=== PATIENT | male | born 1975 | race Caucasian/White ===

== ENCOUNTER 2018-07-26 23:18 | Emergency (ER) | payer OTHER ==
[2018-07-27 00:41] LABS: BASO # 0.1 10^3/uL (0.0-0.2); BASO % 0.7 % (0.0-1.0); EOS # 0.2 10^3/uL (0.0-0.50); EOS % 1.7 % (0.0-3.0); HEMATOCRIT 41.9 % (42.0-52.0); HEMOGLOBIN 14.7 g/dl (13.5-17.5); IMMATURE GRANULOCYTE % 0.3 % (0-3.0); LYMPH # 2.9 10^3/uL (1.5-4.5); LYMPH % 30.5 % (24.0-44.0); MEAN CORPUSCULAR HEMOGLOBIN 31.1 pg (27.0-33.0); MEAN CORPUSCULAR HGB CONC 35.1 g/dl (32.0-36.5); MEAN CORPUSCULAR VOLUME 88.8 fl (80.0-96.0); MONO # 0.8 10^3/uL (0.0-0.8); MONO % 8.5 % (0.0-5.0); NEUTROPHILS # 5.6 10^3/uL (1.8-7.7); NEUTROPHILS % 58.3 % (36.0-66.0); PLATELET COUNT, AUTOMATED 272 10^3/uL (150-450); RED BLOOD COUNT 4.72 10^6/uL (4.30-6.10); RED CELL DISTRIBUTION WIDTH 11.8 % (11.5-14.5); WHITE BLOOD COUNT 9.6 10^3/uL (4.0-10.0)
[2018-07-27 01:04] LABS: BLOOD UREA NITROGEN 16 MG/DL (7-18); CARBON DIOXIDE LEVEL 28 MEQ/L (21-32); CHLORIDE LEVEL 105 MEQ/L (98-107); CREATININE FOR GFR 1.02 MG/DL (0.70-1.30); GLOMERULAR FILTRATION RATE > 60.0 (>60); GLUCOSE, FASTING 117 MG/DL (70-100); POTASSIUM SERUM 3.3 MEQ/L (3.5-5.1); SODIUM LEVEL 143 MEQ/L (136-145)
[2018-07-27 01:05] LABS: ANION GAP 10 MEQ/L (8-16); CALCIUM LEVEL 8.4 MG/DL (8.5-10.1); CPK CREATINE PHOSPHOKINASE 226 U/L (39-308); ETHYL ALCOHOL (ETHANOL) < 0.003 % (0.000-0.010); MB/CK RELATIVE INDEX 1.59 (< OR =4); TROPONIN I < 0.02 NG/ML (< 0.10)
[2018-07-27 02:02] LABS: LACTIC ACID SEPSIS PROTOCOL 1.3 MMOL/L (0.4-2.0)
[2018-07-27] MEDS: NS 1,000 ML IV (02:02)
[2018-07-27 02:03] LABS: KETONE, URINE AUTO RFX NEGATIVE (NEGATIVE); LEUKOCYTE ESTERASE UR AUTO RFX NEGATIVE (NEGATIVE); MUCUS, URINE RFX SMALL (NEGATIVE); NITRITE, URINE AUTO RFX NEGATIVE (NEGATIVE); RBC, URINE AUTO RFX 2 /HPF (0-3); SPECIFIC GRAVITY UR AUTO RFX 1.025 (1.002-1.035); SQUAM EPITHELIAL CELL UR AURFX 0 /HPF (0-6); WBC, URINE AUTO RFX 1 /HPF (0-3)
[2018-07-27 02:20] LABS: AMPHETAMINES LEVEL URINE NEGATIVE (NEGATIVE); BARBITURATES URINE NEGATIVE (NEGATIVE); BENZODIAZEPINES URINE NEGATIVE (NEGATIVE); CANNABINOIDS URINE POSITIVE (NEGATIVE); COCAINE METABOLITE URINE NEGATIVE (NEGATIVE); METHADONE URINE NEGATIVE (NEGATIVE); OPIATES URINE NEGATIVE (NEGATIVE); PHENCYCLIDINE URINE NEGATIVE (NEGATIVE)
== END 2018-07-27 03:47 | disposition home or self-care (01) ==
LOC: M ED 23:18
DX: R55 Syncope and collapse (principal); F43.10 Post-traumatic stress disorder, unspecified; F17.210 Nicotine dependence, cigarettes, uncomplicated
CPT/HCPCS: 71045

== ENCOUNTER → 2018-11-15 | Outpatient (CLI) | payer OTHER ==
--- NOTE | 2018-11-24 | ECWPNPC ---
PATIENT NAME: FAITH TORRES : 1975 GENDER: MALE VISIT DATE: 11/15/2018 DISCHARGE DATE: 11/15/18 1406 VISIT LOCKED DATE TIME: PHYSICIAN: JEISON WELLS MD RESOURCE: JEISON WELLS MD REASON FOR APPOINTMENT 1. CHRONIC BACK PAIN HISTORY OF PRESENT ILLNESS HISTORY OF PRESENT ILLNESS: PAIN THE PATIENT DESCRIBES THE PAIN... 42 YEAR OLD MALE PATIENT WITH A HISTORY OF CHRONIC LOW BACK PAIN. THE PATIENT DESCRIBES THE PAIN SHARP, STABBING, SORE, SHOOTING, AND CONTINUOUS WITH A PAIN SCORE OF 5-9/10 DEPENDING ON PHYSICAL ACTIVITY. THE PATIENT SAYS HIS PAIN STARTS IN HIS LOW BACK AREA AND RADIATES DOWN BOTH OF HIS LEGS. THE PATIENT SAYS HE HAS HAD THIS PAIN FOR MANY YEARS AND HE BELIEVES IT IS STARTED WHEN HE WAS WORKING A [employer]. THE PATIENT SAYS THAT HIS PAIN INCREASES WITH THE MORE PHYSICAL ACTIVITY THAT HE DOES. PATIENT DENIES UNEXPLAINABLE WEIGHT LOSS, FEVER, CHILLS, NEW CHANGES ON HIS URINARY OR BOWEL CONTROL. FALL RISK SCREENING: SCREENING :NO FALLS IN THE PAST YEAR CURRENT MEDICATIONS TAKING DULOXETINE HCL 60 MG CAPSULE DELAYED RELEASE PARTICLES 1 CAP ORALLY DAILY MEDICATION LIST REVIEWED AND RECONCILED WITH THE PATIENT PAST MEDICAL HISTORY PTSD CHRONIC BACK PAIN HX MRSA LEFT ARM PREM ALLERGIES LISINOPRIL: COUGH: SIDE EFFECTS SURGICAL HISTORY BILAT INGUINAL HERNIA REPAIR 10/2012 RIGHT ACL REPAIR 02/2016 LABRUM RIGHT SHOULDER REPAIR 06/2015 LEF ELBOW I&D FOR MRSA 2016 WISDOM TOOTH EXTRACTION A CHILD FAMILY HISTORY FATHER: 73 YRS, DIAGNOSED WITH DIABETES MOTHER: 51 YRS, DIAGNOSED WITH HYPERTENSION, STROKE 1 BROTHER(S) , 1 SISTER(S) - HEALTHY. 3 SON(S) , 3 DAUGHTER(S) - HEALTHY. [facility] . SOCIAL HISTORY GENERAL: TOBACCO USE ARE YOU A:NONSMOKER ADVENTIST [id number] JUDAISM LANGUAGE LANGUAGES SPOKEN:ARMENIAN EDUCATION LEVEL OF EDUCATION:NOT FINISHED COLLEGE LEARNING BARRIERS / SPECIAL NEEDS BARRIERS TO LEARNING?NO HEARING IMPAIRED?NO VISION IMPAIRED?YES :CORRECTIVE LENSES COGNITIVELY IMPAIRED?NO READINESS TO LEARN?YES LEARNING PREFERENCES?NO LEARNING CAPABILITIES PRESENT?YES EMOTIONAL BARRIERS?NO SPECIAL DEVICES?NO FAMILY DENTIST NEEDED?NO PAIN CLINIC PFS, CLERGY, PUBLIC HEALTH REFERRALS HAS THE PATIENT BEEN EDUCATED REGARDING HIS/HER PLAN OF CARE?YES HAS THE PATIENT BEEN EDUCATED REGARDING PAIN, THE RISK FOR PAIN, THE IMPORTANCE OF EFFECTIVE PAIN MANAGEMENT, AND THE PAIN ASSESSMENT PROCESS?YES ADVANCE DIRECTIVE ADVANCE DIRECTIVE DISCUSSED WITH PATIENT:YES DECLINED HOSPITALIZATION/MAJOR DIAGNOSTIC PROCEDURE SURGERIES REVIEW OF SYSTEMS REVIEWED BY: PROVIDER: JEISON WELLS MD . CONSTITUTIONAL: ANY CHANGE IN YOUR MEDICAL CONDITION? NO . CHILLS NO . FEVER NO . INFECTION: DO YOU HAVE NEW INFECTIONS? NO . DO YOU HAVE HISTORY OF MRSA? NO . MUSCULOSKELETAL: ANY NEW PATTERNS OF PAIN OR NUMBNESS? NO . GASTROENTEROLOGY: ANY NEW CHANGE IN BOWEL CONTROL? NO . GENITOURINARY: ANY NEW CHANGE IN BLADDER CONTROL? NO . IS THERE A CHANCE YOU COULD BE ? NO . HEMATOLOGY/LYMPH: DO YOU TAKE ANY BLOOD THINNERS? (FOR EXAMPLE- COUMADIN, PLAVIX, AGGRENOX, PLATEL, PRADAXA, OR XARELTO) NO . WHEN WAS YOUR LAST DOSE? DATE: TIME: . NEUROLOGY: HAVE YOU FALLEN IN THE PAST 12 MONTHS? NO . ANY NEW EXTREMITY NUMBNESS OR WEAKNESS? NO . CARDIOLOGY: DO YOU HAVE A PACEMAKER OR DEFIBRILLATOR? NO . RESPIRATORY: HAVE YOU BEEN SICK IN THE PAST WEEK? NO . FEVER NO . FLU LIKE SYMPTOMS? NO . COUGH NO . INTEGUMENTARY: DO YOU HAVE ANY RASHES OR OPEN SORES? NO . ALLERGIC/IMMUNO: ARE YOU ALLERGIC TO IV DYE? NO . ANY NEW ALLERGIES? NO . PSYCHIATRIC: DO YOU HAVE THOUGHTS OF HURTING YOURSELF OR SOMEONE ELSE? NO . ARE YOU ABUSED, NEGLECTED, OR IN AN UNSAFE ENVIRONMENT? NO . ENDOCRINOLOGY: ARE YOU DIABETIC? NO . OTHER: DO YOU NEED ANY PRESCRIPTIONS? NO . IF YES, PLEASE LIST: ____ . ANY NEW PROBLEMS WITH YOUR MEDICATIONS? NO . WHEN DID YOU LAST EAT? ____ . WHEN DID YOU LAST DRINK? ____ . WHAT DID YOU LAST DRINK? ____ . NAME OF PERSON DRIVING YOU HOME? ____ . DO YOU HAVE ANY OTHER QUESTIONS OR CONCERNS NO . VITAL SIGNS WT 258 LBS, HT 77 IN, BMI 30.59 INDEX, BP 146/95 MM HG, HR 73 /MIN, RR 18 /MIN, TEMP 96.9 F, OXYGEN SAT % 96%, NA INITIALS SC 12:01, REVIEWED BY: EM. EXAMINATION GENERAL EXAMINATION: PATIENT IS ALERT O X 3 AND COOPERATIVE. LUNGS CLEAR, TO AUSCULTATION. HEART: NO MURMURS OR GALLOPS; FACIAL CRANIAL NERVES ARE GROSSLY NORMAL. GOOD SYMMETRY OF FACIAL MUSCLE MOVEMENT. NORMAL VISUAL RICHEY. SEVERE TENDERNESS IN THE LOW BACK AREA. PATIENT CAN FLEX HIS BACK TO 50 DEGREES AND CAN EXTEND HIS BACK TO 10 DEGREES. PRESENCE OF TRIGGER POINTS AND BANDS OF TISSUE WITH RESTRICTION OF MOVEMENT OF THE LOW BACK. PAIN INCREASES OVER THE LUMBAR FACET JOINTS WITH EXTENSION AND LATERAL ROTATION OF THE BACK. ASSESSMENTS MYALGIA, OTHER SITE - M79.18 (PRIMARY) TREATMENT MYALGIA, OTHER SITE CLINICAL NOTES: WE DISCUSSED SEVERAL ISSUES WITH MR. TORRES'S PAIN MANAGEMENT CASE. DUE TO THE TRIGGER POINTS, BANDS OF TISSUE, AND RESTRICTION OF MOVEMENT, I WOULD LIKE TO MOVE FORWARD WITH A TRIGGER POINT INJECTION AT THIS TIME. WE DISCUSSED THE BENEFITS, RISKS, AND ALTERNATIVES OF THE INJECTION AND THE PATIENT WOULD LIKE TO PROCEED. I WOULD ALSO LIKE TO GET COPIES OF THE PATIENT'S MOST RECENT LUMBAR MRI FROM [facility]. THE PATIENT WILL FOLLOW UP 3 WEEKS AFTER THE INJECTION. INSTRUCTIONS WERE GIVEN, QUESTIONS WERE ANSWERED, PATIENT REPORTS UNDERSTANDING AND AGREES WITH THE PLAN. I, HEBER YO, DOCUMENTED THE ABOVE INFORMATION ACTING A SCRIBE FOR DR. WELLS. I HAVE REVIEWED THE ABOVE DOCUMENT, WRITTEN BY HEBER YO SCRIBE AND I VERIFY THAT IT IS ACCURATE. DEAR DR. MATA:THANK YOU FOR YOUR KIND REFERRAL OF MR. TORRES. IF YOU WANT TO DISCUSS HIS CASE WITH ME PLEASE CALL ME AT THE PAIN CENTER AT [phone]. SINCERELY,JEISON WELLS, [facility]. OTHERS NOTES: TRIGGER POINT INJECTION: YOUR EXPERIENCE MATERIAL WAS PRINTED,TRIGGER POINT INJECTION MATERIAL WAS PRINTED. PREVENTIVE MEDICINE PAIN CLINIC TEACHING: PROCEDURE TEACHING PT GIVEN WRITTEN AND VERBAL EDUCATION ON TRIGGER POINT INJECTIONS. PT ALSO GIVEN WRITTEN AND VERBAL PRE-PROCEDURE INSTRUCTIONS. PT VERBALIZES UNDERSTANDING OF ALL EDUCATION AND INSTRUCTIONS. NISHA VELASQUEZ 11/15/2018 2:08:13 PM > . PROCEDURE CODES FA211 ESTABILISHED PATIENT [facility] FACILITY CHARGE G8427 CURRENT MEDS W/DOSAGES DOCUMENTED G8730 PAIN ASSESS POS TOOL F/U PLAN DOC DISPOSITION & COMMUNICATION FOLLOW UP TPI & F/U 1 MONTH AFTER ELECTRONICALLY SIGNED BY JEISON WELLS MD, MD ON 11/23/2018 AT 08:45 PM EST DISCLAIMER : THIS IS A VISIT SUMMARY EXTRACTED FROM THE [employer] CHART. IT IS NOT A COPY OF THE [employer] PROGRESS NOTE. PJ
== END ==
LOC: M PAIN 11:30
PROVIDERS: ATTEND Anesthesiology
DX: M79.18 Myalgia, other site (principal); G47.33 Obstructive sleep apnea (adult) (pediatric); F43.10 Post-traumatic stress disorder, unspecified; Z88.8 Allergy status to other drugs, medicaments and biological substances; Z79.899 Other long term (current) drug therapy

== ENCOUNTER → 2018-12-05 | Outpatient (CLI) | payer OTHER ==
[~2018-12-05] MED LIST: BUPIVACAINE HCL 0.25% 10 ML VIAL As Ordered ONE; BUPIVACAINE HCL 0.25% 30 ML VIAL As Ordered ONE; TRIAMCINOLONE ACETONIDE SUSP 40 MG/ML VIAL (J3301) As Ordered ONE; diazePAM 5 MG TAB As Ordered ONE; oxyCODONE 5MG TAB As Ordered ONE
--- NOTE | 2018-12-14 23:21 | ECWPNPC ---
PATIENT NAME: FAITH TORRES : 1975 GENDER: MALE VISIT DATE: 12/05/2018 DISCHARGE DATE: 12/05/18 1605 VISIT LOCKED DATE TIME: PHYSICIAN: JEISON WELLS MD RESOURCE: JEISON WELLS MD HISTORY OF PRESENT ILLNESS HISTORY OF PRESENT ILLNESS: PAIN THE PATIENT DESCRIBES THE PAIN... FALL RISK SCREENING: SCREENING : NO FALLS IN THE PAST YEAR. CURRENT MEDICATIONS TAKING DULOXETINE HCL 60 MG CAPSULE DELAYED RELEASE PARTICLES 1 CAP ORALLY DAILY, NOTES: 12/05/18 MEDICATION LIST REVIEWED AND RECONCILED WITH THE PATIENT PAST MEDICAL HISTORY PTSD CHRONIC BACK PAIN HX MRSA LEFT ARM PREM ALLERGIES LISINOPRIL: COUGH: SIDE EFFECTS SURGICAL HISTORY BILAT INGUINAL HERNIA REPAIR 10/2012 RIGHT ACL REPAIR 02/2016 LABRUM RIGHT SHOULDER REPAIR 06/2015 LEF ELBOW I&D FOR MRSA 2015 WISDOM TOOTH EXTRACTION A CHILD FAMILY HISTORY FATHER: 73 YRS, DIAGNOSED WITH DIABETES MOTHER: 51 YRS, DIAGNOSED WITH HYPERTENSION, STROKE 1 BROTHER(S) , 1 SISTER(S) - HEALTHY. 3 SON(S) , 3 DAUGHTER(S) - HEALTHY. FATHER OF SEPSIS IN [facility]. SOCIAL HISTORY GENERAL: TOBACCO USE ARE YOU A:NONSMOKER PRESYBETERIAN [id number] QUAKER LANGUAGE LANGUAGES SPOKEN:SERBIAN EDUCATION LEVEL OF EDUCATION:NOT FINISHED COLLEGE LEARNING BARRIERS / SPECIAL NEEDS BARRIERS TO LEARNING?NO HEARING IMPAIRED?NO VISION IMPAIRED?YES :CORRECTIVE LENSES COGNITIVELY IMPAIRED?NO READINESS TO LEARN?YES LEARNING PREFERENCES?NO LEARNING CAPABILITIES PRESENT?YES EMOTIONAL BARRIERS?NO SPECIAL DEVICES?NO ENGRAVER MACHINE NEEDED?NO PAIN CLINIC PFS, CLERGY, PUBLIC HEALTH REFERRALS HAS THE PATIENT BEEN EDUCATED REGARDING HIS/HER PLAN OF CARE?YES HAS THE PATIENT BEEN EDUCATED REGARDING PAIN, THE RISK FOR PAIN, THE IMPORTANCE OF EFFECTIVE PAIN MANAGEMENT, AND THE PAIN ASSESSMENT PROCESS?YES ADVANCE DIRECTIVE ADVANCE DIRECTIVE DISCUSSED WITH PATIENT:YES DECLINED HOSPITALIZATION/MAJOR DIAGNOSTIC PROCEDURE SURGERIES REVIEW OF SYSTEMS REVIEWED BY: PROVIDER: . CONSTITUTIONAL: ANY CHANGE IN YOUR MEDICAL CONDITION? NO . CHILLS NO . FEVER NO . INFECTION: DO YOU HAVE NEW INFECTIONS? NO . DO YOU HAVE HISTORY OF MRSA? YES, LEFT ARM . MUSCULOSKELETAL: ANY NEW PATTERNS OF PAIN OR NUMBNESS? YES, S/P FALL, INCREASED PAIN . GASTROENTEROLOGY: ANY NEW CHANGE IN BOWEL CONTROL? NO . GENITOURINARY: ANY NEW CHANGE IN BLADDER CONTROL? NO . IS THERE A CHANCE YOU COULD BE ? NO . HEMATOLOGY/LYMPH: DO YOU TAKE ANY BLOOD THINNERS? (FOR EXAMPLE- COUMADIN, PLAVIX, AGGRENOX, PLATEL, PRADAXA, OR XARELTO) NO . WHEN WAS YOUR LAST DOSE? DATE: TIME: . NEUROLOGY: HAVE YOU FALLEN IN THE PAST 12 MONTHS? YES, FELL LAST WEEK FROM LOSS OF BALANCE ON THE ICE, INJURED LEFT HIP, PT DENIES SEEKING TX . ANY NEW EXTREMITY NUMBNESS OR WEAKNESS? YES, RIGHT ARM AND BILAT LEG NUMBNESS . CARDIOLOGY: DO YOU HAVE A PACEMAKER OR DEFIBRILLATOR? NO . RESPIRATORY: HAVE YOU BEEN SICK IN THE PAST WEEK? NO . FEVER NO . FLU LIKE SYMPTOMS? NO . COUGH NO . INTEGUMENTARY: DO YOU HAVE ANY RASHES OR OPEN SORES? NO . ALLERGIC/IMMUNO: ARE YOU ALLERGIC TO IV DYE? NO . ANY NEW ALLERGIES? NO . PSYCHIATRIC: DO YOU HAVE THOUGHTS OF HURTING YOURSELF OR SOMEONE ELSE? NO . ARE YOU ABUSED, NEGLECTED, OR IN AN UNSAFE ENVIRONMENT? NO . ENDOCRINOLOGY: ARE YOU DIABETIC? NO . OTHER: DO YOU NEED ANY PRESCRIPTIONS? NO . IF YES, PLEASE LIST: ____ . ANY NEW PROBLEMS WITH YOUR MEDICATIONS? NO . WHEN DID YOU LAST EAT? 12/04/18 2030 . WHEN DID YOU LAST DRINK? 12/05/18 0830 . WHAT DID YOU LAST DRINK? WATER . NAME OF PERSON DRIVING YOU HOME? . DO YOU HAVE ANY OTHER QUESTIONS OR CONCERNS NO . VITAL SIGNS WT 247.4 LBS, HT 77 IN, BMI 29.33 INDEX, BP 138/70 MM HG, HR 84 /MIN, RR 18 /MIN, TEMP 96.9 F, OXYGEN SAT % 94%, NA INITIALS SC 13:53, REVIEWED BY: EM. ASSESSMENTS MYALGIA, OTHER SITE - M79.18 (PRIMARY) PROCEDURES PN TRIGGER POINT INJECTION WITH STEROIDS PRE PROCEDURE DIAGNOSIS 1. MYALGIA 2. PAIN AT BILATERAL THORACIC AREA AND BILATERAL LOW BACK AREA POST PROCEDURE DIAGNOSIS 1. MYALGIA 2. PAIN AT BILATERAL THORACIC AREA AND BILATERAL LOW BACK AREA PROCEDURE TRIGGER POINT INJECTION AT BILATERAL THORACIC AREA AND BILATERAL LOW BACK AREA SURGEON DR. JEISON WELLS LEAD SUPPLY WORKER NONE ANESTHESIA LOCAL PRE PROCEDURE NOTE THE PATIENT HAS A HISTORY OF CHRONIC PAIN AT THE RIGHT AND LEFT THORACIC AREA AND RIGHT AND LEFT LOW BACK AREA. I EVALUATE THE PATIENT AND REVIEWED THE CHART. THERE IS EVIDENCE OF BANDS OF TISSUE WITH RESTRICTION OF MOVEMENT AND PRESENCE OF TRIGGER POINT AT THE AFFECTED AREA. I WENT OVER THE RISKS, ALTERNATIVES, AND BENEFITS ASSOCIATED WITH THIS PROCEDURE. THE PATIENT WOULD LIKE TO PROCEED AND GIVE CONSENT TO PERFORMED THE PROCEDURE. THE PATIENT DENIES UNEXPLAINABLE WEIGHT LOSS, FEVER, CHILLS, OR NEW CHANGES IN URINARY OR BOWEL CONTROL DESCRIPTION OF PROCEDURE THE PATIENT WAS BROUGHT TO THE PROCEDURE ROOM AND PLACED IN THE SITTING POSITION. THE AREA WAS CLEANED WITH ALCOHOL. THE PROCEDURE WAS DONE USING ASEPTIC STERILE TECHNIQUE. I CHECKED LATERALITY AND THE LEVEL WHERE THE PROCEDURE WAS GOING TO BE PERFORMED WITH THE PATIENT AND THE SUPPORTING STAFF AT THE MOMENT OF THE TIME OUT IN THE PROCEDURE ROOM. USING A 25-GAUGE NEEDLE, TRIGGER POINTS WERE INJECTED AT THE RIGHT AND LEFT THORACIC AREA AND RIGHT AND LEFT LOW BACK AREA WITH A TOTAL OF 40 ML OF BUPIVACAINE 0.25% AND KENALOG 40 MG. THERE WAS NO EVIDENCE OF BLOOD, PARESTHESIA OR CEREBROSPINAL FLUID DURING THE PROCEDURE. THE PATIENT WAS SENT TO THE RECOVERY ROOM. THE PATIENT WAS MOVING THE EXTREMITIES AND DOING WELL. THERE WAS NO COMPLICATION DURING THE PROCEDURE POST PROCEDURE NOTE THE PATIENT WILL BE SEEN IN A FOLLOW UP IN THE NEXT FEW WEEKS. INSTRUCTIONS WERE GIVEN, QUESTIONS WERE ANSWERED, AND THE PATIENT EXPRESSED UNDERSTANDING AND AGREES WITH THE PLAN. I, HEBER YO, DOCUMENTED THE ABOVE INFORMATION ACTING A SCRIBE FOR DR. WELLS. I HAVE REVIEWED THE ABOVE DOCUMENT, WRITTEN BY HEBER ANTUNEZ AND I VERIFY THAT IT IS ACCURATE. PROCEDURE CODES 52910 INJECT TRIGGER POINTS 3/> DISPOSITION & COMMUNICATION FOLLOW UP 3 WEEKS ELECTRONICALLY SIGNED BY JEISON WELLS MD, MD ON 12/14/2018 AT 07:02 PM EST DISCLAIMER : THIS IS A VISIT SUMMARY EXTRACTED FROM THE [employer] CHART. IT IS NOT A COPY OF THE [employer] PROGRESS NOTE. MTDD
== END ==
LOC: M PAIN 13:45
PROVIDERS: ATTEND Anesthesiology
DX: M79.18 Myalgia, other site (principal); M54.6 Pain in thoracic spine; M54.5 Low back pain; F43.10 Post-traumatic stress disorder, unspecified; G47.33 Obstructive sleep apnea (adult) (pediatric); Z79.899 Other long term (current) drug therapy; Z88.8 Allergy status to other drugs, medicaments and biological substances; Z86.14 Personal history of Methicillin resistant Staphylococcus aureus infection
CPT/HCPCS: 20553; J3301

== ENCOUNTER → 2018-12-09 | Outpatient (CLI) | payer OTHER ==
--- NOTE | 2018-12-09 22:12 | REP ---
Clinical: Pain with hyperextension injury. Technique: AP, lateral, bilateral oblique views left wrist . Findings: The carpal bones, surrounding osseous structures, soft tissues, and joint spaces are normal. There is no evidence for acute fracture or dislocation. No subcutaneous emphysema or radiodense foreign body. Impression: No acute fracture or dislocation. If the patient remains symptomatic consider reevaluation in 3-5 days including scaphoid views if necessary. Electronically Signed by Archie Cat MD 12/09/2018 10:04 P
== END ==
LOC: M WUC 18:56
PROVIDERS: ATTEND Physician Assistant
DX: M25.532 Pain in left wrist (principal)

== ENCOUNTER → 2019-01-16 | Outpatient (CLI) | payer OTHER ==
--- NOTE | 2019-02-03 00:37 | ECWPNPC ---
PATIENT NAME: FAITH TORRES : 1975 GENDER: MALE VISIT DATE: 01/16/2019 DISCHARGE DATE: 01/16/19 174 VISIT LOCKED DATE TIME: PHYSICIAN: JEISON WELLS MD RESOURCE: JEISON WELLS MD REASON FOR APPOINTMENT 1. POST PROC HISTORY OF PRESENT ILLNESS HISTORY OF PRESENT ILLNESS: PAIN THE PATIENT DESCRIBES THE PAIN... 43 YEAR OLD MALE PATIENT WITH A HISTORY OF CHRONIC LOW BACK AND THORACIC PAIN. THE PATIENT DESCRIBES THE PAIN ACHING, SHARP, STABBING, SHOOTING, AND CONTINUOUS WITH A PAIN SCORE OF 4-10/10 DEPENDING ON PHYSICAL ACTIVITY. THE PATIENT SAYS HIS PAIN STARTS IN HIS LOW BACK AND RADIATES DOWN INTO HIS LEFT LEG. THE PATIENT RECEIVED A TRIGGER POINT INJECTION ON 12/05/2018 AND REPORTS THAT IT HELPED HIM FOR ABOUT 2 WEEKS AND THEN HIS PAIN RETURNED. PATIENT DENIES UNEXPLAINABLE WEIGHT LOSS, FEVER, CHILLS, NEW CHANGES ON HIS URINARY OR BOWEL CONTROL. FALL RISK SCREENING: SCREENING :NO FALLS REPORTED IN THE LAST YEAR CURRENT MEDICATIONS TAKING DULOXETINE HCL 60 MG CAPSULE DELAYED RELEASE PARTICLES 1 CAP ORALLY DAILY TAKING VITAMIN D-400 _ TABLET 600 UNITS 2 TABLETS ORALLY ONCE A DAY MEDICATION LIST REVIEWED AND RECONCILED WITH THE PATIENT PAST MEDICAL HISTORY PTSD CHRONIC BACK PAIN HX MRSA LEFT ARM PREM ALLERGIES LISINOPRIL: COUGH - SIDE EFFECTS SURGICAL HISTORY BILAT INGUINAL HERNIA REPAIR 10/2012 RIGHT ACL REPAIR 02/2016 LABRUM RIGHT SHOULDER REPAIR 06/2015 LEFT ELBOW I&D FOR MRSA 2015 WISDOM TOOTH EXTRACTION A CHILD FAMILY HISTORY FATHER: 73 YRS, DIAGNOSED WITH DIABETES MOTHER: 51 YRS, HYPERTENSION, STROKE 1 BROTHER(S) , 1 SISTER(S) - HEALTHY. 3 SON(S) , 3 DAUGHTER(S) - HEALTHY. FATHER OF SEPSIS IN [place]\NS[place]. SOCIAL HISTORY GENERAL: TOBACCO USE ARE YOU A:NONSMOKER LATEX QUESTIONNAIRE LATEX ALLERGY : HAVE YOU EVER DEVELOPED ANY TYPE OF REACTION AFTER HANDLING LATEX PRODUCTS SUCH RUBBER GLOVES, CONDOMS, DIAPHRAGMS, BALLOONS, SOCKS, OR UNDERWEAR?NO LATEX ALLERGY : HAVE YOU EVER DEVELOPED ANY TYPE OF REACTION DURING OR AFTER DENTAL APPOINTMENT, VAGINAL/RECTAL EXAMINATION, SURGICAL PROCEDURE, OR ANY OTHER EXPOSURE?NO LATEX RISK : HAVE YOU EVER HAD ANY DIFFICULTY BREATHING OR HIVES AFTER EATING OR HANDLING ANY FRUITS, OR VEGETABLES; SUCH KIWI, BANANAS, STONE FRUITS, OR CHESTNUTSNO LATEX RISK : DO YOU HAVE A PREVIOUS PERSONAL HISTORY OF MORE THAN NINE SURGERIES, SPINA BIFIDA, OR REPEATED CATHERTIZATIONS? NO LATEX RISK : ARE YOU FREQUENTLY EXPOSED TO LATEX PRODUCTS IN YOUR OCCUPATION?NO DATE ASKED : 01/16/2019 ALCOHOL SCREENING DID YOU HAVE A DRINK CONTAINING ALCOHOL IN THE PAST YEAR?YES HOW OFTEN DID YOU HAVE A DRINK CONTAINING ALCOHOL IN THE PAST YEAR?MONTHLY OR LESS (1 POINT) HOW MANY DRINKS DID YOU HAVE ON A TYPICAL DAY WHEN YOU WERE DRINKING IN THE PAST YEAR?3 OR 4 (1 POINT) HOW OFTEN DID YOU HAVE SIX OR MORE DRINKS ON ONE OCCASION IN THE PAST YEAR?NEVER (0 POINTS) POINTS2 INTERPRETATIONNEGATIVE RECREATIONAL DRUG USE DRUG USE?YES HOW OFTEN AND HOW MUCH? [id number] TIMES/DAY CAFFEINE CAFFEINE USE?NO HOLINESS [id number] ADVENTIST LANGUAGE LANGUAGES SPOKEN:TAJIK EDUCATION LEVEL OF EDUCATION:NOT FINISHED COLLEGE LEARNING BARRIERS / SPECIAL NEEDS BARRIERS TO LEARNING?NO HEARING IMPAIRED?NO VISION IMPAIRED?YES :CORRECTIVE LENSES COGNITIVELY IMPAIRED?NO READINESS TO LEARN?YES LEARNING PREFERENCES?NO LEARNING CAPABILITIES PRESENT?YES EMOTIONAL BARRIERS?NO SPECIAL DEVICES?NO JEWELRY SALES NEEDED?NO DOMESTIC VIOLENCE DO YOU FEEL SAFE IN YOUR ENVIRONMENT?YES PAIN CLINIC PFS, CLERGY, PUBLIC HEALTH REFERRALS HAS THE PATIENT BEEN EDUCATED REGARDING HIS/HER PLAN OF CARE?YES HAS THE PATIENT BEEN EDUCATED REGARDING PAIN, THE RISK FOR PAIN, THE IMPORTANCE OF EFFECTIVE PAIN MANAGEMENT, AND THE PAIN ASSESSMENT PROCESS?YES ADVANCE DIRECTIVE ADVANCE DIRECTIVE DISCUSSED WITH PATIENT:YES 01/16/19 PT DOES NOT HAVE ANY ADVANCED DIRECTIVES AND HE DECLINES INFORMATION ON HCP AT THIS TIME. AD HOSPITALIZATION/MAJOR DIAGNOSTIC PROCEDURE SURGERIES REVIEW OF SYSTEMS REVIEWED BY: PROVIDER: JEISON WELLS MD . CONSTITUTIONAL: ANY CHANGE IN YOUR MEDICAL CONDITION? NO . CHILLS NO . FEVER NO . INFECTION: DO YOU HAVE NEW INFECTIONS? NO . DO YOU HAVE HISTORY OF MRSA? YES 2016 LEFT ELBOW . MUSCULOSKELETAL: ANY NEW PATTERNS OF PAIN OR NUMBNESS? NO . GASTROENTEROLOGY: ANY NEW CHANGE IN BOWEL CONTROL? NO . GENITOURINARY: ANY NEW CHANGE IN BLADDER CONTROL? NO . IS THERE A CHANCE YOU COULD BE ? NO . HEMATOLOGY/LYMPH: DO YOU TAKE ANY BLOOD THINNERS? (FOR EXAMPLE- COUMADIN, PLAVIX, AGGRENOX, PLATEL, PRADAXA, OR XARELTO) NO . WHEN WAS YOUR LAST DOSE? DATE: TIME: . NEUROLOGY: HAVE YOU FALLEN IN THE PAST 12 MONTHS? YES, IN OCT. SLIPPED ON ICE. BACK PAIN WAS AGGREVATED AFTER . ANY NEW EXTREMITY NUMBNESS OR WEAKNESS? BOTH LEGS CONTINUE TO BE WEAK AND NUMB, ON OCCASSIONS THIS IS SEVERE AND HE CAN HARDLY STAND UP . CARDIOLOGY: DO YOU HAVE A PACEMAKER OR DEFIBRILLATOR? NO . RESPIRATORY: HAVE YOU BEEN SICK IN THE PAST WEEK? NO . FEVER NO . FLU LIKE SYMPTOMS? NO . COUGH NO . INTEGUMENTARY: DO YOU HAVE ANY RASHES OR OPEN SORES? NO . ALLERGIC/IMMUNO: ARE YOU ALLERGIC TO IV DYE? NO . ANY NEW ALLERGIES? NO . PSYCHIATRIC: DO YOU HAVE THOUGHTS OF HURTING YOURSELF OR SOMEONE ELSE? NO . ARE YOU ABUSED, NEGLECTED, OR IN AN UNSAFE ENVIRONMENT? NO . ENDOCRINOLOGY: ARE YOU DIABETIC? NO . OTHER: DO YOU NEED ANY PRESCRIPTIONS? NO . IF YES, PLEASE LIST: ____ . ANY NEW PROBLEMS WITH YOUR MEDICATIONS? NO . WHEN DID YOU LAST EAT? ____ . WHEN DID YOU LAST DRINK? ____ . WHAT DID YOU LAST DRINK? ____ . NAME OF PERSON DRIVING YOU HOME? ____ . DO YOU HAVE ANY OTHER QUESTIONS OR CONCERNS NO . VITAL SIGNS WT 244.2 LBS, HT 77 IN, BMI 28.95 INDEX, BP 155/93 MM HG, HR 98 /MIN, RR 18 /MIN, TEMP 97.8 F, OXYGEN SAT % 97%, SAFE IN ENV? (Y/N) Y, NA INITIALS SC 15:41, REVIEWED BY: JOSÉ MIGUEL. EXAMINATION GENERAL EXAMINATION: PATIENT IS ALERT O X 3 AND COOPERATIVE. ANTALGIC GAIT. LEFT LEG IS WEAKER AT EXTENSION AND FLEXION. STRAIGHT LEG RAISE OF THE LEFT LEG IS POSITIVE AT 30 DEGREES FOR RADICULOPATHY. MRI OF THE LUMBAR SPINE DONE ON 06/21/2015 SHOWS BULGING DISCS AT MULTIPLE LEVELS. ASSESSMENTS INTERVERTEBRAL DISC DISORDER WITH RADICULOPATHY OF LUMBAR REGION - M51.16 (PRIMARY) TREATMENT INTERVERTEBRAL DISC DISORDER WITH RADICULOPATHY OF LUMBAR REGION CLINICAL NOTES: WE DISCUSSED SEVERAL ISSUES WITH MR. TORRES'S PAIN MANAGEMENT CASE. DUE TO THE LUMBAR RADICULOPATHY, I WOULD LIKE TO MOVE FORWARD WITH A LUMBAR EPIDURAL STEROID INJECTION AT THIS TIME. WE DISCUSSED THE BENEFITS, RISKS, AND ALTERNATIVES OF THE INJECTION AND THE PATIENT WOULD LIKE TO PROCEED. THE PATIENT WILL FOLLOW UP 3 WEEKS AFTER THE INJECTION. INSTRUCTIONS WERE GIVEN, QUESTIONS WERE ANSWERED, PATIENT REPORTS UNDERSTANDING AND AGREES WITH THE PLAN. I, HEBER YO, DOCUMENTED THE ABOVE INFORMATION ACTING A SCRIBE FOR DR. WELLS. I HAVE REVIEWED THE ABOVE DOCUMENT, WRITTEN BY HEBER TAVAREZIBDonna AND I VERIFY THAT IT IS ACCURATE. . OTHERS NOTES: WHAT IS LUMBAR EPIDURAL INJECTION? MATERIAL WAS PRINTED,LUMBAR EPIDURAL INJECTION: YOUR PROCEDURE MATERIAL WAS PRINTED. PROCEDURE CODES FA211 ESTABILISHED PATIENT [facility] FACILITY CHARGE G8427 CURRENT MEDS W/DOSAGES DOCUMENTED G8730 PAIN ASSESS POS TOOL F/U PLAN DOC DISPOSITION & COMMUNICATION FOLLOW UP 3 WEEKS ELECTRONICALLY SIGNED BY JEISON WELLS MD, MD ON 02/02/2019 AT 07:48 PM EDT DISCLAIMER : THIS IS A VISIT SUMMARY EXTRACTED FROM THE [employer] CHART. IT IS NOT A COPY OF THE [employer] PROGRESS NOTE. PJ
== END ==
LOC: M PAIN 14:45
PROVIDERS: ATTEND Anesthesiology
DX: M51.16 Intervertebral disc disorders with radiculopathy, lumbar region (principal); G89.29 Other chronic pain; F43.10 Post-traumatic stress disorder, unspecified; G47.33 Obstructive sleep apnea (adult) (pediatric); Z79.899 Other long term (current) drug therapy; Z88.8 Allergy status to other drugs, medicaments and biological substances; Z86.14 Personal history of Methicillin resistant Staphylococcus aureus infection

== ENCOUNTER → 2019-01-29 | Outpatient (CLI) | payer OTHER ==
[~2019-01-29] MED LIST changes: -BUPIVACAINE HCL 0.25% 10 ML VIAL As Ordered ONE; -BUPIVACAINE HCL 0.25% 30 ML VIAL As Ordered ONE; +ISOVUE-M 300 61% 15ML VIAL (Q9967) As Ordered ONE; +LIDOCAINE 1% SDV INJ 30 ML VIAL As Ordered ONE; -TRIAMCINOLONE ACETONIDE SUSP 40 MG/ML VIAL (J3301) As Ordered ONE; +methylPREDNISolone SUSP 40 MG/ML (DEPO-medrol) VIAL (J1030) As Ordered ONE
--- NOTE | 2019-01-29 11:42 | REP ---
Partial lumbar spine series: Two views . History: Injection procedure for pain. 11 seconds of fluoroscopy time is reported. Findings: A sequence of two fluoroscopically obtained last image hold procedural spot radiographs of the lumbar spine document needle position and contrast injection associated with injection procedure. Electronically Signed by Jeremy Almaraz MD 01/29/2019 11:34 A
--- NOTE | 2019-02-17 00:19 | ECWPNPC ---
PATIENT NAME: FAITH TORRES : 1975 GENDER: MALE VISIT DATE: 01/29/2019 DISCHARGE DATE: 01/29/19 1146 VISIT LOCKED DATE TIME: PHYSICIAN: JEISON WELLS MD RESOURCE: JEISON WELLS MD REASON FOR APPOINTMENT 1. LESI HISTORY OF PRESENT ILLNESS HISTORY OF PRESENT ILLNESS: PAIN THE PATIENT DESCRIBES THE PAIN... FALL RISK SCREENING: SCREENING :NO FALLS REPORTED IN THE LAST YEAR CURRENT MEDICATIONS TAKING DULOXETINE HCL 60 MG CAPSULE DELAYED RELEASE PARTICLES 1 CAP ORALLY DAILY, NOTES: 01/29/19599 TAKING VITAMIN D-400 _ TABLET 1000 UNITS 2 TABLETS ORALLY ONCE A DAY, NOTES: 01/29/19599 MEDICATION LIST REVIEWED AND RECONCILED WITH THE PATIENT PAST MEDICAL HISTORY PTSD CHRONIC BACK PAIN HX MRSA LEFT ARM PREM ALLERGIES LISINOPRIL: COUGH - SIDE EFFECTS SURGICAL HISTORY BILAT INGUINAL HERNIA REPAIR 10/2012 RIGHT ACL REPAIR 02/2016 LABRUM RIGHT SHOULDER REPAIR 06/2015 LEFT ELBOW I&D FOR MRSA 2015 WISDOM TOOTH EXTRACTION A CHILD FAMILY HISTORY FATHER: 73 YRS, DIAGNOSED WITH DIABETES MOTHER: 51 YRS, HYPERTENSION, STROKE 1 BROTHER(S) , 1 SISTER(S) - HEALTHY. 3 SON(S) , 3 DAUGHTER(S) - HEALTHY. FATHER OF SEPSIS IN BLOOD\\NSISTER DM. SOCIAL HISTORY GENERAL: TOBACCO USE ARE YOU A:NONSMOKER PAIN CLINIC PFS, CLERGY, PUBLIC HEALTH REFERRALS HAS THE PATIENT BEEN EDUCATED REGARDING HIS/HER PLAN OF CARE?YES HAS THE PATIENT BEEN EDUCATED REGARDING PAIN, THE RISK FOR PAIN, THE IMPORTANCE OF EFFECTIVE PAIN MANAGEMENT, AND THE PAIN ASSESSMENT PROCESS?YES LATEX QUESTIONNAIRE LATEX ALLERGY : HAVE YOU EVER DEVELOPED ANY TYPE OF REACTION AFTER HANDLING LATEX PRODUCTS SUCH RUBBER GLOVES, CONDOMS, DIAPHRAGMS, BALLOONS, SOCKS, OR UNDERWEAR?NO LATEX ALLERGY : HAVE YOU EVER DEVELOPED ANY TYPE OF REACTION DURING OR AFTER DENTAL APPOINTMENT, VAGINAL/RECTAL EXAMINATION, SURGICAL PROCEDURE, OR ANY OTHER EXPOSURE?NO LATEX RISK : HAVE YOU EVER HAD ANY DIFFICULTY BREATHING OR HIVES AFTER EATING OR HANDLING ANY FRUITS, OR VEGETABLES; SUCH KIWI, BANANAS, STONE FRUITS, OR CHESTNUTSNO LATEX RISK : DO YOU HAVE A PREVIOUS PERSONAL HISTORY OF MORE THAN NINE SURGERIES, SPINA BIFIDA, OR REPEATED CATHERTIZATIONS? NO LATEX RISK : ARE YOU FREQUENTLY EXPOSED TO LATEX PRODUCTS IN YOUR OCCUPATION?NO DATE ASKED : 01/16/2019 CAFFEINE CAFFEINE USE?NO ADVANCE DIRECTIVE ADVANCE DIRECTIVE DISCUSSED WITH PATIENT:YES PT DOES NOT HAVE ANY ADVANCED DIRECTIVES AND HE DECLINES INFORMATION ON HCP AT THIS TIME. EDUCATION LEVEL OF EDUCATION:NOT FINISHED COLLEGE TAOISM [id number] ORTHODOXY LANGUAGE LANGUAGES SPOKEN:SWAZI DOMESTIC VIOLENCE DO YOU FEEL SAFE IN YOUR ENVIRONMENT?YES ALCOHOL SCREENING DID YOU HAVE A DRINK CONTAINING ALCOHOL IN THE PAST YEAR?YES HOW OFTEN DID YOU HAVE A DRINK CONTAINING ALCOHOL IN THE PAST YEAR?MONTHLY OR LESS (1 POINT) HOW MANY DRINKS DID YOU HAVE ON A TYPICAL DAY WHEN YOU WERE DRINKING IN THE PAST YEAR?3 OR 4 (1 POINT) HOW OFTEN DID YOU HAVE SIX OR MORE DRINKS ON ONE OCCASION IN THE PAST YEAR?NEVER (0 POINTS) POINTS2 INTERPRETATIONNEGATIVE RECREATIONAL DRUG USE DRUG USE?YES HOW OFTEN AND HOW MUCH? [id number] TIMES/DAY LEARNING BARRIERS / SPECIAL NEEDS BARRIERS TO LEARNING?NO HEARING IMPAIRED?NO VISION IMPAIRED?YES :CORRECTIVE LENSES COGNITIVELY IMPAIRED?NO READINESS TO LEARN?YES LEARNING PREFERENCES?NO LEARNING CAPABILITIES PRESENT?YES EMOTIONAL BARRIERS?NO SPECIAL DEVICES?NO ECOTHERAPIST NEEDED?NO HOSPITALIZATION/MAJOR DIAGNOSTIC PROCEDURE SURGERIES REVIEW OF SYSTEMS REVIEWED BY: PROVIDER: . CONSTITUTIONAL: ANY CHANGE IN YOUR MEDICAL CONDITION? NO . CHILLS NO . FEVER NO . INFECTION: DO YOU HAVE NEW INFECTIONS? NO . DO YOU HAVE HISTORY OF MRSA? YES . MUSCULOSKELETAL: ANY NEW PATTERNS OF PAIN OR NUMBNESS? NO . GASTROENTEROLOGY: ANY NEW CHANGE IN BOWEL CONTROL? NO . GENITOURINARY: ANY NEW CHANGE IN BLADDER CONTROL? NO . IS THERE A CHANCE YOU COULD BE ? NO . HEMATOLOGY/LYMPH: DO YOU TAKE ANY BLOOD THINNERS? (FOR EXAMPLE- COUMADIN, PLAVIX, AGGRENOX, PLATEL, PRADAXA, OR XARELTO) NO . WHEN WAS YOUR LAST DOSE? DATE: TIME: . NEUROLOGY: HAVE YOU FALLEN IN THE PAST 12 MONTHS? NO . ANY NEW EXTREMITY NUMBNESS OR WEAKNESS? NO . CARDIOLOGY: DO YOU HAVE A PACEMAKER OR DEFIBRILLATOR? NO . RESPIRATORY: HAVE YOU BEEN SICK IN THE PAST WEEK? NO . FEVER NO . FLU LIKE SYMPTOMS? NO . COUGH NO . INTEGUMENTARY: DO YOU HAVE ANY RASHES OR OPEN SORES? NO . ALLERGIC/IMMUNO: ARE YOU ALLERGIC TO IV DYE? NO . ANY NEW ALLERGIES? NO . PSYCHIATRIC: DO YOU HAVE THOUGHTS OF HURTING YOURSELF OR SOMEONE ELSE? NO . ARE YOU ABUSED, NEGLECTED, OR IN AN UNSAFE ENVIRONMENT? NO . ENDOCRINOLOGY: ARE YOU DIABETIC? NO . OTHER: DO YOU NEED ANY PRESCRIPTIONS? NO . IF YES, PLEASE LIST: ____ . ANY NEW PROBLEMS WITH YOUR MEDICATIONS? NO . WHEN DID YOU LAST EAT? 01/28/192099 . WHEN DID YOU LAST DRINK? 01/28/192099 . WHAT DID YOU LAST DRINK? WATER . NAME OF PERSON DRIVING YOU HOME? ROSAS . DO YOU HAVE ANY OTHER QUESTIONS OR CONCERNS NO . VITAL SIGNS WT 249.0 LBS, HT 77 IN, BMI 29.52 INDEX, BP 143/85 MM HG, HR 82 /MIN, RR 18 /MIN, TEMP 97.2 F, OXYGEN SAT % 97%, NA INITIALS SC 09:11, REVIEWED BY: CRYSTAL. ASSESSMENTS INTERVERTEBRAL DISC DISORDER WITH RADICULOPATHY OF LUMBAR REGION - M51.16 (PRIMARY) PROCEDURES PRE PROCEDURE DIAGNOSIS LUMBAR DISC DISORDER WITH RADICULOPATHY POST PROCEDURE DIAGNOSIS LUMBAR DISC DISORDER WITH RADICULOPATHY PROCEDURE LUMBAR EPIDURAL STEROID INJECTION UNDER FLUOROSCOPIC GUIDANCE SURGEON DR. JEISON WELLS ELOCUTION TEACHER NONE ANESTHESIA LOCAL PRE PROCEDURE NOTE THE PATIENT HAS A HISTORY OF CHRONIC LOW BACK PAIN. I EVALUATED THE PATIENT AND REVIEWED THE CHART. I WENT OVER THE RISKS, ALTERNATIVES, AND BENEFITS ASSOCIATED WITH THIS PROCEDURE. THE PATIENT WOULD LIKE TO PROCEED AND GIVE CONSENT TO PERFORMED THE PROCEDURE. THE PATIENT DENIES UNEXPLAINABLE WEIGHT LOSS, FEVER, CHILLS, OR NEW CHANGES IN URINARY OR BOWEL CONTROL. DESCRIPTION OF PROCEDURE THE PATIENT WAS BROUGHT TO THE PROCEDURE ROOM AND PLACED IN THE PRONE POSITION. THE LUMBOSACRAL AREA WAS CLEANED WITH BETADINE SOLUTION AND DRAPED ASEPTICALLY. THE PROCEDURE WAS DONE UNDER STERILE CONDITIONS. I CHECKED LATERALITY AND THE LEVEL WHERE THE PROCEDURE WAS GOING TO BE PERFORMED WITH THE PATIENT AND THE SUPPORTING STAFF AT THE MOMENT OF THE TIME OUT IN THE PROCEDURE ROOM. UNDER FLUOROSCOPIC GUIDANCE, THE TARGET POINT WAS SELECTED AT THE INTERLAMINAR LEVEL OF L4-L5. LIDOCAINE WAS USED TO NUMB THE SKIN AND THE SUBCUTANEOUS TISSUE BELOW IT. EPIDURAL TUOHY NEEDLE, 17-GAUGE, WAS ADVANCED UNDER FLUOROSCOPIC GUIDANCE AND FOLLOWING PATIENT FEEDBACK UNTIL THE EPIDURAL SPACE WAS REACHED, 7 CM DEEP INTO THE SKIN BY THE LOSS OF RESISTANCE TECHNIQUE. ISOVUE M DYE 30%, 0.25 ML, WAS INJECTED SHOWING ADEQUATE SPREAD OF THE DYE. THEN, A SOLUTION OF 3 ML OF NORMAL SALINE WITH DEPO-MEDROL 60 MG WAS INJECTED SLOWLY FOLLOWING PATIENT FEEDBACK. THERE WAS NO EVIDENCE OF BLOOD, PARESTHESIA OR CEREBROSPINAL FLUID DURING THE PROCEDURE. THE PATIENT WAS SENT TO THE RECOVERY ROOM. THE PATIENT WAS MOVING THE EXTREMITIES AND DOING WELL. THERE WAS NO COMPLICATION DURING THE PROCEDURE. FLUOROSCOPY TIME WAS 11 SECONDS. POST PROCEDURE NOTE THE PATIENT WILL BE SEEN IN A FOLLOW UP IN THE NEXT FEW WEEKS. INSTRUCTIONS WERE GIVEN, QUESTIONS WERE ANSWERED, AND THE PATIENT EXPRESSED UNDERSTANDING AND AGREES WITH THE PLAN. I, RAN THOMAS, DOCUMENTED THE ABOVE INFORMATION ACTING A SCRIBE FOR DR. WELLS. I HAVE REVIEWED THE ABOVE DOCUMENT, WRITTEN BY RAN THOMAS SCRIBE AND I VERIFY THAT IT IS ACCURATE. DIAGNOSTIC IMAGING [facility] FLUORO GUIDE SPINE INJECTION (PAIN)[id number] PROCEDURE CODES 91423 LUMBAR/SACRAL W/ IMAGING 6045F RADXPS IN END [id number] PXD DISPOSITION & COMMUNICATION FOLLOW UP 2 WEEKS ELECTRONICALLY SIGNED BY JEISON WELLS MD, MD ON 02/16/2019 AT 03:20 PM EDT DISCLAIMER : THIS IS A VISIT SUMMARY EXTRACTED FROM THE [facility] CHART. IT IS NOT A COPY OF THE [facility] PROGRESS NOTE. MTDD
== END ==
LOC: M PAIN 08:45
PROVIDERS: ATTEND Anesthesiology
DX: G89.29 Other chronic pain (principal); M51.16 Intervertebral disc disorders with radiculopathy, lumbar region; F43.10 Post-traumatic stress disorder, unspecified; G47.33 Obstructive sleep apnea (adult) (pediatric); Z79.899 Other long term (current) drug therapy; Z88.8 Allergy status to other drugs, medicaments and biological substances; Z86.14 Personal history of Methicillin resistant Staphylococcus aureus infection
CPT/HCPCS: 62323; J1030; Q9967

== ENCOUNTER → 2019-03-31 | Outpatient (CLI) | payer OTHER ==
--- NOTE | 2019-04-09 00:33 | ECWPNPC ---
PATIENT NAME: FAITH TORRES : 1975 GENDER: MALE VISIT DATE: 03/31/2019 DISCHARGE DATE: 03/31/19 1313 VISIT LOCKED DATE TIME: PHYSICIAN: JEISON WELLS MD RESOURCE: JEISON WELLS MD REASON FOR APPOINTMENT 1. POST PROC HISTORY OF PRESENT ILLNESS HISTORY OF PRESENT ILLNESS: PAIN THE PATIENT DESCRIBES THE PAIN... 43 YEAR OLD MALE PATIENT WITH A HISTORY OF CHRONIC LOW BACK PAIN. THE PATIENT DESCRIBES THE PAIN ACHING, TENDER, AND INTERMITTENT WITH A PAIN SCORE OF 4-8/10 DEPENDING ON PHYSICAL ACTIVITY. THE PATIENT STATES THE PAIN STARTS IN HIS LOW BACK AND RADIATES DOWN INTO HIS LEFT LEG. THE PATIENT SAYS THE PAIN IN HIS LOW BACK IS WORSE THAN HIS LEG PAIN. THE PATIENT RECEIVED A L4-L5 LUMBAR EPIDURAL ON 01/29/2019 WHICH HE SAYS PROVIDED HIM WITH GOOD PAIN RELIEF FOR 2 WEEKS. PATIENT DENIES UNEXPLAINABLE WEIGHT LOSS, FEVER, CHILLS, NEW CHANGES ON HIS URINARY OR BOWEL CONTROL. FALL RISK SCREENING: SCREENING :NO FALLS REPORTED IN THE LAST YEAR CURRENT MEDICATIONS TAKING DULOXETINE HCL 30 MG CAPSULE DELAYED RELEASE PARTICLES 1 CAP ORALLY 2 IN A.M., 1 IN P.M. TAKING VITAMIN D-400 _ TABLET 1000 UNITS 2 TABLETS ORALLY ONCE A DAY MEDICATION LIST REVIEWED AND RECONCILED WITH THE PATIENT PAST MEDICAL HISTORY PTSD CHRONIC BACK PAIN HX MRSA LEFT ARM PREM ALLERGIES LISINOPRIL: COUGH - SIDE EFFECTS SURGICAL HISTORY BILAT INGUINAL HERNIA REPAIR 10/2012 RIGHT ACL REPAIR 02/2016 LABRUM RIGHT SHOULDER REPAIR 06/2015 LEFT ELBOW I&D FOR MRSA 2016 WISDOM TOOTH EXTRACTION A CHILD FAMILY HISTORY FATHER: 73 YRS, DIAGNOSED WITH DIABETES MOTHER: 51 YRS, HYPERTENSION, STROKE 1 BROTHER(S) , 1 SISTER(S) - HEALTHY. 3 SON(S) , 3 DAUGHTER(S) - HEALTHY. FATHER OF SEPSIS IN BLOOD\\NSISTER DM. SOCIAL HISTORY GENERAL: TOBACCO USE ARE YOU A:NONSMOKER PAIN CLINIC PFS, CLERGY, PUBLIC HEALTH REFERRALS HAS THE PATIENT BEEN EDUCATED REGARDING HIS/HER PLAN OF CARE?YES HAS THE PATIENT BEEN EDUCATED REGARDING PAIN, THE RISK FOR PAIN, THE IMPORTANCE OF EFFECTIVE PAIN MANAGEMENT, AND THE PAIN ASSESSMENT PROCESS?YES LATEX QUESTIONNAIRE LATEX ALLERGY : HAVE YOU EVER DEVELOPED ANY TYPE OF REACTION AFTER HANDLING LATEX PRODUCTS SUCH RUBBER GLOVES, CONDOMS, DIAPHRAGMS, BALLOONS, SOCKS, OR UNDERWEAR?NO LATEX ALLERGY : HAVE YOU EVER DEVELOPED ANY TYPE OF REACTION DURING OR AFTER DENTAL APPOINTMENT, VAGINAL/RECTAL EXAMINATION, SURGICAL PROCEDURE, OR ANY OTHER EXPOSURE?NO LATEX RISK : HAVE YOU EVER HAD ANY DIFFICULTY BREATHING OR HIVES AFTER EATING OR HANDLING ANY FRUITS, OR VEGETABLES; SUCH KIWI, BANANAS, STONE FRUITS, OR CHESTNUTSNO LATEX RISK : DO YOU HAVE A PREVIOUS PERSONAL HISTORY OF MORE THAN NINE SURGERIES, SPINA BIFIDA, OR REPEATED CATHERTIZATIONS? NO LATEX RISK : ARE YOU FREQUENTLY EXPOSED TO LATEX PRODUCTS IN YOUR OCCUPATION?NO DATE ASKED : 03/31/2019 CAFFEINE CAFFEINE USE?NO ADVANCE DIRECTIVE ADVANCE DIRECTIVE DISCUSSED WITH PATIENT:YES 03-31-19 PT. DOES NOT HAVE ANY ADVANCED DIRECTIVES AND HE DECLINES INFORMATION ON HCP AT THIS TIME. AD EDUCATION LEVEL OF EDUCATION:NOT FINISHED COLLEGE CONFUCIANISM [id number] LANGUAGE LANGUAGES SPOKEN:INDONESIAN DOMESTIC VIOLENCE DO YOU FEEL SAFE IN YOUR ENVIRONMENT?YES ALCOHOL SCREENING DID YOU HAVE A DRINK CONTAINING ALCOHOL IN THE PAST YEAR?YES HOW OFTEN DID YOU HAVE A DRINK CONTAINING ALCOHOL IN THE PAST YEAR?MONTHLY OR LESS (1 POINT) HOW MANY DRINKS DID YOU HAVE ON A TYPICAL DAY WHEN YOU WERE DRINKING IN THE PAST YEAR?3 OR 4 (1 POINT) HOW OFTEN DID YOU HAVE SIX OR MORE DRINKS ON ONE OCCASION IN THE PAST YEAR?NEVER (0 POINTS) POINTS2 INTERPRETATIONNEGATIVE RECREATIONAL DRUG USE DRUG USE?YES HOW OFTEN AND HOW MUCH? [id number] TIMES/DAY LEARNING BARRIERS / SPECIAL NEEDS BARRIERS TO LEARNING?NO HEARING IMPAIRED?NO VISION IMPAIRED?YES :CORRECTIVE LENSES COGNITIVELY IMPAIRED?NO READINESS TO LEARN?YES LEARNING PREFERENCES?NO LEARNING CAPABILITIES PRESENT?YES EMOTIONAL BARRIERS?NO SPECIAL DEVICES?NO DRAMATIC TEACHER NEEDED?NO HOSPITALIZATION/MAJOR DIAGNOSTIC PROCEDURE SURGERIES REVIEW OF SYSTEMS REVIEWED BY: PROVIDER: JEISON WELLS MD . CONSTITUTIONAL: ANY CHANGE IN YOUR MEDICAL CONDITION? NO . CHILLS NO . FEVER NO . INFECTION: DO YOU HAVE NEW INFECTIONS? NO . DO YOU HAVE HISTORY OF MRSA? YES, LEFT ELBOW 2016 . MUSCULOSKELETAL: ANY NEW PATTERNS OF PAIN OR NUMBNESS? YES, PAIN IS BETTER. HE STILL GET NUMBNESS IN BOTH LEGS BUT NOT THE SHOOTING PAIN . GASTROENTEROLOGY: ANY NEW CHANGE IN BOWEL CONTROL? NO . GENITOURINARY: ANY NEW CHANGE IN BLADDER CONTROL? NO . IS THERE A CHANCE YOU COULD BE ? NO . HEMATOLOGY/LYMPH: DO YOU TAKE ANY BLOOD THINNERS? (FOR EXAMPLE- COUMADIN, PLAVIX, AGGRENOX, PLATEL, PRADAXA, OR XARELTO) NO . WHEN WAS YOUR LAST DOSE? DATE: TIME: . NEUROLOGY: HAVE YOU FALLEN IN THE PAST 12 MONTHS? NO . ANY NEW EXTREMITY NUMBNESS OR WEAKNESS? YES, APPROX EVERY OTHER DAY HE NUMBNESS BOTH LEGS . CARDIOLOGY: DO YOU HAVE A PACEMAKER OR DEFIBRILLATOR? NO . RESPIRATORY: HAVE YOU BEEN SICK IN THE PAST WEEK? NO . FEVER NO . FLU LIKE SYMPTOMS? NO . COUGH NO . INTEGUMENTARY: DO YOU HAVE ANY RASHES OR OPEN SORES? NO . ALLERGIC/IMMUNO: ARE YOU ALLERGIC TO IV DYE? NO . ANY NEW ALLERGIES? NO . PSYCHIATRIC: DO YOU HAVE THOUGHTS OF HURTING YOURSELF OR SOMEONE ELSE? NO . ARE YOU ABUSED, NEGLECTED, OR IN AN UNSAFE ENVIRONMENT? NO . ENDOCRINOLOGY: ARE YOU DIABETIC? NO . OTHER: DO YOU NEED ANY PRESCRIPTIONS? NO . IF YES, PLEASE LIST: ____ . ANY NEW PROBLEMS WITH YOUR MEDICATIONS? NO . WHEN DID YOU LAST EAT? ____ . WHEN DID YOU LAST DRINK? ____ . WHAT DID YOU LAST DRINK? ____ . NAME OF PERSON DRIVING YOU HOME? ____ . DO YOU HAVE ANY OTHER QUESTIONS OR CONCERNS NO . VITAL SIGNS WT 256.6 LBS, HT 77 IN, BMI 30.42 INDEX, BP 138/75 MM HG, HR 81 /MIN, RR 18 /MIN, TEMP 96.7 F, OXYGEN SAT % 98%, SAFE IN ENV? (Y/N) Y, NA INITIALS WA 11:42, REVIEWED BY: JOSÉ MIGUEL. EXAMINATION GENERAL EXAMINATION: PATIENT IS ALERT O X 3 AND COOPERATIVE. TENDERNESS IN THE LOW BACK. PAIN INCREASES OVER THE LUMBAR FACET JOINTS WITH EXTENSION AND LATERAL ROTATION OF THE BACK. MRI OF THE LUMBAR SPINE DONE ON 06/21/2015 SHOWS FACET ARTHROPATHY CHANGES. ASSESSMENTS SPONDYLOSIS OF LUMBAR REGION WITHOUT MYELOPATHY OR RADICULOPATHY - M47.816 (PRIMARY) SPONDYLOSIS OF LUMBOSACRAL REGION WITHOUT MYELOPATHY OR RADICULOPATHY - M47.817 TREATMENT SPONDYLOSIS OF LUMBAR REGION WITHOUT MYELOPATHY OR RADICULOPATHY CLINICAL NOTES: WE DISCUSSED SEVERAL ISSUES WITH MR. TORRES' PAIN MANAGEMENT CASE. DUE TO THE LUMBAR SPONDYLOSIS, I WOULD LIKE TO MOVE FORWARD WITH A L4-L5, L5-S1 DIAGNOSTIC _#1 LUMBAR FACET BLOCK TO CONSIDER RADIOFREQUENCY. WE DISCUSSED THE BENEFITS, RISKS, AND ALTERNATIVES OF THE PROCEDURE AND THE PATIENT WOULD LIKE TO PROCEED. INSTRUCTIONS WERE GIVEN, QUESTIONS WERE ANSWERED, PATIENT REPORTS UNDERSTANDING AND AGREES WITH THE PLAN. I, RAN THOMAS, DOCUMENTED THE ABOVE INFORMATION ACTING A SCRIBE FOR DR. WELLS. I HAVE REVIEWED THE ABOVE DOCUMENT, WRITTEN BY RAN TAVAREZIBDonna AND I VERIFY THAT IT IS ACCURATE. . PREVENTIVE MEDICINE PAIN CLINIC TEACHING: PROCEDURE TEACHING FACET BLOCK HANDOUT PRINTED, REVIEWED AND GIVEN TO PT. EM. PROCEDURE CODES FA211 ESTABILISHED PATIENT [facility] FACILITY CHARGE G8427 CURRENT MEDS W/DOSAGES DOCUMENTED G8730 PAIN ASSESS POS TOOL F/U PLAN DOC DISPOSITION & COMMUNICATION FOLLOW UP 3 WEEKS (REASON: L4-L5, L5-S1 L FB DIAGNOSTIC #1) ELECTRONICALLY SIGNED BY JEISON WELLS MD, ON 04/08/2019 AT 03:40 PM EDT DISCLAIMER : THIS IS A VISIT SUMMARY EXTRACTED FROM THE [facility] CHART. IT IS NOT A COPY OF THE [employer] PROGRESS NOTE. YVESD
== END ==
LOC: M PAIN 11:30
PROVIDERS: ATTEND Anesthesiology
DX: M47.816 Spondylosis without myelopathy or radiculopathy, lumbar region (principal); M47.817 Spondylosis without myelopathy or radiculopathy, lumbosacral region; F43.10 Post-traumatic stress disorder, unspecified; G47.33 Obstructive sleep apnea (adult) (pediatric); Z86.14 Personal history of Methicillin resistant Staphylococcus aureus infection; Z79.899 Other long term (current) drug therapy; Z88.8 Allergy status to other drugs, medicaments and biological substances

== ENCOUNTER 2019-05-11 11:27 | Emergency (ER) | payer OTHER, SELFPAY ==
[~2019-05-11] VITALS: Ht 195.6 cm; Wt 111.6 kg
[2019-05-11 11:27] VITALS: BP 152/83
[2019-05-11] MEDS ORDERED: GABA-843 PO (12:08)
[2019-05-11] MEDS ORDERED: CAPS0.022 TOP (12:08)
[2019-05-11] MEDS ORDERED: VALT1TAB PO (12:09)
== END 2019-05-11 12:16 | disposition home or self-care (01) ==
LOC: M ED 11:27
DX: M79.2 Neuralgia and neuritis, unspecified (principal); B02.9 Zoster without complications; F43.10 Post-traumatic stress disorder, unspecified; G89.29 Other chronic pain; M54.9 Dorsalgia, unspecified; Z79.899 Other long term (current) drug therapy; Z88.8 Allergy status to other drugs, medicaments and biological substances; F17.210 Nicotine dependence, cigarettes, uncomplicated

== ENCOUNTER → 2019-10-23 | Outpatient (CLI) | payer OTHER ==
[~2019-10-23] MED LIST changes: +CAPS0.022 TOP; +GABA-843 PO; -ISOVUE-M 300 61% 15ML VIAL (Q9967) As Ordered ONE; -LIDOCAINE 1% SDV INJ 30 ML VIAL As Ordered ONE; +VALT1TAB PO; -diazePAM 5 MG TAB As Ordered ONE; -methylPREDNISolone SUSP 40 MG/ML (DEPO-medrol) VIAL (J1030) As Ordered ONE; -oxyCODONE 5MG TAB As Ordered ONE
--- NOTE | 2019-10-23 09:22 | REP ---
INDICATION: Cevicalgia PROCEDURE: MR cervical spine without contrast. Sagittal T1, T2, and STIR images obtained. Axial T1 and T2-weighted images obtained. COMPARISON STUDIES: No prior similar studies FINDINGS: There is [id number] multilevel degenerative disc disease loss of disc height and disc desiccation seen diffusely throughout the cervical spine but greater at the C5-6 level where disc/osteophyte ridging indents the thecal sac and mildly indents the cervical cord. This causes minimal tortuosity of the cervical cord. There is straightening of the cervical spine and mild reversal normal cervical lordosis. Craniovertebral junction is unremarkable. No evidence of abnormal cord signal. There is straightening of the cervical spine and minimally absent cervical lordosis. On review of axial images, At C2-3 and C3-4 and no significant canal or foraminal narrowing At C4-5 no significant canal or foraminal narrowing At C5-6 a disc/osteophyte complex indents the anterior thecal sac and minimally indents the cervical cord with minimal cord impingement but no evidence of cord compression. Neural foramen appear patent. At C6-7 and C7-T1 no significant canal or foraminal narrowing. On the STIR images, no significant STIR signal abnormality to suggest soft tissue or ligamentous injury. IMPRESSION: Degenerative disc disease is mild but more progressed at the C5-6 level. At C5-6 a disc/osteophyte complex indents the anterior thecal sac and minimally indents the cervical cord with minimal cord impingement but no evidence of cord compression. Neural foramen appear patent at this level. Electronically Signed by Ej Schaefer MD 10/23/2019 09:14 A
== END ==
LOC: M RAD 06:59
PROVIDERS: ATTEND Family Medicine
DX: M50.322 Other cervical disc degeneration at C5-C6 level (principal)

== ENCOUNTER → 2019-11-05 | Outpatient (CLI) | payer OTHER | LOC: M OUTALCOH 08:13 | PROVIDERS: ATTEND Psychiatry & Neurology Addiction Medicine | DX: Z13.39 Encounter for screening examination for other mental health and behavioral disorders (principal); F10.20 Alcohol dependence, uncomplicated; F11.20 Opioid dependence, uncomplicated; F17.200 Nicotine dependence, unspecified, uncomplicated ==

== ENCOUNTER 2019-12-01 08:45 | Outpatient (RCR) | payer OTHER | END 2019-12-06 | LOC: M OUTALCOH 08:45 | PROVIDERS: ATTEND Psychiatry & Neurology Addiction Medicine | DX: F10.20 Alcohol dependence, uncomplicated (principal); F12.20 Cannabis dependence, uncomplicated; F17.200 Nicotine dependence, unspecified, uncomplicated ==

== ENCOUNTER 2020-01-21 11:00 | Emergency (ER) | payer OTHER ==
[~2020-01-21] VITALS: Ht 195.6 cm; Wt 115.7 kg
[2020-01-21] MEDS ORDERED: CYMB1CAP5 PO (11:08)
[2020-01-21] MEDS ORDERED: TRAZ-252 PO (11:08)
[2020-01-21 11:38] LABS: BASO % 0.7 % (0.0-1.0); EOS # 0.1 10^3/uL (0.0-0.5); EOS % 1.4 % (0.0-3.0); HEMATOCRIT 46.1 % (42.0-52.0); LYMPH # 1.5 10^3/uL (1.5-5.0); LYMPH % 25.9 % (24.0-44.0); MEAN CORPUSCULAR HEMOGLOBIN 31.4 pg (27.0-33.0); MEAN CORPUSCULAR HGB CONC 34.7 g/dl (32.0-36.5); MEAN CORPUSCULAR VOLUME 90.4 fl (80.0-96.0); MONO # 0.4 10^3/uL (0.0-0.8); MONO % 6.7 % (0.0-5.0); NEUTROPHILS # 3.8 10^3/uL (1.5-8.5); PLATELET COUNT, AUTOMATED 253 10^3/uL (150-450); WHITE BLOOD COUNT 5.8 10^3/uL (4.0-10.0)
[2020-01-21] MEDS ORDERED: ONDANSETRON 4MG/2ML VIAL IV ONE (11:45)
[2020-01-21] MEDS ORDERED: NS 1,000 ML IV ONE (11:45)
[2020-01-21 12:04] LABS: ALT/SGPT 37 U/L (12-78); BILIRUBIN,DIRECT 0.2 MG/DL (0.0-0.2); BILIRUBIN,TOTAL 1.1 MG/DL (0.2-1.0); BLOOD UREA NITROGEN 9 MG/DL (7-18); CALCIUM LEVEL 9.1 MG/DL (8.5-10.1); CARBON DIOXIDE LEVEL 27 MEQ/L (21-32); CHLORIDE LEVEL 105 MEQ/L (98-107); CREATININE FOR GFR 1.07 MG/DL (0.70-1.30); GLOMERULAR FILTRATION RATE > 60.0 (>60); GLUCOSE, FASTING 146 MG/DL (70-100); LIPASE 429 U/L (73-393); POTASSIUM SERUM 3.7 MEQ/L (3.5-5.1); SODIUM LEVEL 139 MEQ/L (136-145); TOTAL PROTEIN 7.3 GM/DL (6.4-8.2)
[2020-01-21 12:41] LABS: AMPHETAMINES LEVEL URINE NEGATIVE (NEGATIVE); BARBITURATES URINE NEGATIVE (NEGATIVE); BENZODIAZEPINES URINE NEGATIVE (NEGATIVE); CANNABINOIDS URINE POSITIVE (NEGATIVE); COCAINE METABOLITE URINE NEGATIVE (NEGATIVE); METHADONE URINE NEGATIVE (NEGATIVE); OPIATES URINE NEGATIVE (NEGATIVE); PHENCYCLIDINE URINE NEGATIVE (NEGATIVE)
--- NOTE | 2020-01-21 12:46 | REP ---
CHEST, SINGLE VIEW: There is no evidence of acute infiltrate. No pleural effusion is seen. The heart is normal in size. The mediastinal silhouette is unremarkable. The visualized osseous structures are intact. IMPRESSION: No acute pulmonary disease. Electronically Signed by Francisco Marcano MD 01/21/2020 03:25 P
[2020-01-21] MEDS ORDERED: ONDA4TAB6 PO (14:18)
[2020-01-21 15:03] VITALS: BP 143/85
--- NOTE | 2020-01-21 15:15 | ECGEPIP ---
[facility] - ED Test Date: 2020-01-21 Pat Name: FAITH TORRES Department: Room: - Gender: Male Drafter Patent: ada : 1975 Requested By: NED DELACRUZ PA-C. Order Number: [id number] Reading MD: Herminia Ontiveros Measurements Intervals [place] Rate: 82 P: 65 MN: 150 QRS: 64 QRSD: 99 T: 49 QT: 374 QTc: 438 Interpretive Statements SINUS RHYTHM WITH SINUS ARRHYTHMIA NSTTW abnormalities INCREASED RATE 07/26/18 Electronically Signed on 01-21-2020 15:15:06 EDT by Herminia Ontiveros
== END 2020-01-21 15:15 | disposition home or self-care (01) ==
LOC: M ED 11:00
DX: J06.9 Acute upper respiratory infection, unspecified (principal); R55 Syncope and collapse; R11.2 Nausea with vomiting, unspecified; R19.7 Diarrhea, unspecified; F43.10 Post-traumatic stress disorder, unspecified; F17.200 Nicotine dependence, unspecified, uncomplicated; Z79.899 Other long term (current) drug therapy; Z88.8 Allergy status to other drugs, medicaments and biological substances
CPT/HCPCS: 71045; 80048; 80076; 80307; 83690; 85025; 87486; 87581; 87633; 87798; 93005; 96361; 96374; 99284; J2405; U0002

== ENCOUNTER → 2020-01-22 | Outpatient (REF) | payer OTHER ==
[~2020-01-22] MED LIST changes: +CYMB1CAP5 PO; +ONDA4TAB6 PO; +TRAZ-252 PO
== END ==
LOC: M LAB REF 12:33
PROVIDERS: ATTEND Emergency Medicine
DX: R19.7 Diarrhea, unspecified (principal)

== ENCOUNTER 2020-07-23 09:42 | Emergency (ER) | payer OTHER ==
[~2020-07-23] VITALS: Ht 195.6 cm; Wt 116.7 kg
[2020-07-23] MEDS ORDERED: BACL1TAB8 PO (09:52)
[2020-07-23] MEDS ORDERED: OMEP-218 PO (09:52)
[2020-07-23] MEDS ORDERED: AMIT10TA PO (09:52)
[2020-07-23] MEDS ORDERED: KETOROLAC 60MG 2ML VIAL IM ONE (10:30)
[2020-07-23] MEDS ORDERED: methylPREDNISolone 125MG 2ML VIAL IM ONE (10:30)
[2020-07-23] MEDS ORDERED: LIDOCAINE 5% (LIDODERM) PATCH TD ONE (10:30)
--- NOTE | 2020-07-23 11:03 | REPVR ---
PROCEDURE INFORMATION: Exam: CT Lumbar Spine Without Contrast Exam date and time: 07/23/2020 10:47 AM Age: 44 years old Clinical indication: Low back pain; Additional info: Pain to lower back after picking up baby, diff walking TECHNIQUE: Imaging protocol: Computed tomography images of the lumbar spine without contrast. Radiation optimization: All CT scans at this facility use at least one of these dose optimization techniques: automated exposure control; mA and/or kV adjustment per patient size (includes targeted exams where dose is matched to clinical indication); or iterative reconstruction. COMPARISON: CR Spine. Lumbosacral, complete 06/21/2015 11:54 AM FINDINGS: Vertebrae: No acute bony injury or malalignment. Schmorl's nodes and vertebral endplate irregularity . Ununited osteophyte about the anterior-inferior aspect of the L2 vertebral body. Discs/Spinal canal/Neural foramina: Spinal stenosis with central canal and bilateral foraminal components at the L3-L4 and L4-L5 levels; in association with disc bulging, ligamentous hypertrophy, and facet arthropathy.Note that assessment of disc, spinal cord, and nerve root pathology is limited in the absence of intrathecal contrast. Sacrum/coccyx: 13 mm bone island in the right sacrum . Soft tissues: Unremarkable. IMPRESSION: 1. Spinal stenosis with central canal and bilateral foraminal components at the L3-L4 and L4-L5 levels; in association with disc bulging, ligamentous hypertrophy, and facet arthropathy. 2. Additional findings as described above. Electronically signed by: Derek Rodríguez On 07/23/2020 11:03:42 AM
[2020-07-23] MEDS ORDERED: PERCOCET 5MG/325MG TAB PO ONE (11:45)
[2020-07-23 11:46] VITALS: BP 141/83
[2020-07-23] MEDS ORDERED: **NOTE PATIENT COMMENT** MISC XX SCH (21:00)
--- NOTE | 2020-07-26 11:37 | ED PDOC ---
Post-Departure Follow-Up dr brvao faxed formal report of ct ls spine for fu Lawanda Stroud MD Jul 26, 2020 11:37
== END 2020-07-23 11:49 | disposition home or self-care (01) ==
LOC: M ED 09:42
DX: M54.5 Low back pain (principal); M48.061 Spinal stenosis, lumbar region without neurogenic claudication; F17.200 Nicotine dependence, unspecified, uncomplicated; Z79.899 Other long term (current) drug therapy; Z88.8 Allergy status to other drugs, medicaments and biological substances
CPT/HCPCS: 72131; 96372; 99283; J1885; J2930

== ENCOUNTER 2020-11-04 08:07 | Emergency (ER) | payer OTHER ==
[~2020-11-04] VITALS: Ht 195.6 cm; Wt 114.0 kg
[~2020-11-04 08:07] MED LIST changes: +AMIT10TA PO; +BACL1TAB8 PO; +GABA-282 PO; -GABA-843 PO; +OMEP-218 PO
--- OUTSIDE RECORDS SUMMARY | 2020-11-04 08:13 | CCD ---
Author Author [facility] Organization [facility] Address Unknown Phone Unavailable Care Team Providers Care Anesthesiologist Assistant Name Role Phone MOE WATERS Unavailable Unavailable NRI, 318 Unavailable Unavailable GELY, JENNY NELSON PA-C Unavailable Unavailable GELY, JENNY NELSON PA-C Unavailable Unavailable GELY, JENNY NELSON PA-C Unavailable Unavailable GELY, JENNY NELSON PA-C Unavailable Unavailable GELY, JENNY NELSON PA-C Unavailable Unavailable GELY, JENNY NELSON PA-C Unavailable Unavailable GELY, JENNY NELSON PA-C Unavailable Unavailable GELY, JENNY NELSON PA-C Unavailable Unavailable GELY, JENNY NELSON PA-C Unavailable Unavailable Radha Edwards MD Unavailable Unavailable Radha Edwards MD Unavailable Unavailable Radha Edwards MD Unavailable Unavailable Radha Edwards MD Unavailable Unavailable Radha Edwards MD Unavailable Unavailable Radha Edwards MD Unavailable Unavailable Radha Edwards MD Unavailable Unavailable Radha Edwards MD Unavailable Unavailable Radha Edwards MD Unavailable Unavailable Bolla, S Curtis RIOS Unavailable Unavailable Bolla, S Curtis RIOS Unavailable Unavailable Bolla, S Curtis RIOS Unavailable Unavailable Bolla, S Curtis RIOS Unavailable Unavailable Bolla, S Curtis RIOS Unavailable Unavailable Bolla, S Curtis RIOS Unavailable Unavailable Bolla, S Curtis RIOS Unavailable Unavailable Bolla, S Curtis RIOS Unavailable Unavailable Bolla, S Curtis RIOS Unavailable Unavailable Bolla, S Curtis RIOS Unavailable Unavailable Bolla, S Curtis RIOS Unavailable Unavailable Bolla, S Curtis RIOS Unavailable Unavailable Bolla, S Curtis RIOS Unavailable Unavailable Bolla, S Curtis RIOS Unavailable Unavailable Bolla, S Curtis RIOS Unavailable Unavailable Bolla, S Curtis RIOS Unavailable Unavailable Bolla, S Curtis RIOS Unavailable Unavailable Bolla, S Curtis RIOS Unavailable Unavailable Bolla, S Curtis RIOS Unavailable Unavailable Bolla, S Curtis RIOS Unavailable Unavailable Bolla, S Curtis RIOS Unavailable Unavailable Bolla, S Curtis RIOS Unavailable Unavailable Bolla, S Curtis RIOS Unavailable Unavailable Bolla, S Curtis RIOS Unavailable Unavailable Bolla, S Curtis RIOS Unavailable Unavailable Bolla, S Curtis RIOS Unavailable Unavailable Bolla, S Curtis RIOS Unavailable Unavailable Bolla, S Curtis RIOS Unavailable Unavailable Bolla, S Curtis MD Unavailable Unavailable Bolla, S Curtis MD Unavailable Unavailable Bolla, S Curtis MD Unavailable Unavailable Bolla, S Curtis MD Unavailable Unavailable Bolla, S Curtis MD Unavailable Unavailable Bolla, S Curtis RIOS Unavailable Unavailable Bolla, S Curtis RIOS Unavailable Unavailable Bolla, S Curtis RIOS Unavailable Unavailable Bolla, S Curtis MD Unavailable Unavailable Bolla, S Curtis MD Unavailable Unavailable Bolla, S Curtis MD Unavailable Unavailable Re-disclosure Warning The records that you are about to access may contain information from federally-assisted alcohol or drug abuse programs. If such information is present, then the following federally mandated warning applies: This information has been disclosed to you from records protected by federal confidentiality rules (42 CFR part 2). The federal rules prohibit you from making any further disclosure of this information unless further disclosure is expressly permitted by the written consent of the person to whom it pertains or as otherwise permitted by 42 CFR part 2. A general authorization for the release of medical or other information is NOT sufficient for this purpose. The Federal rules restrict any use of the information to criminally investigate or prosecute any alcohol or drug abuse patient.The records that you are about to access may contain highly sensitive health information, the redisclosure of which is protected by Article 27-F of the [place] Public Health law. If you continue you may have access to information: Regarding HIV / AIDS; Provided by facilities licensed or operated by the [place] Office of Mental Health; or Provided by the [place] Office for People With Developmental Disabilities. If such information is present, then the following [place] [facility] mandated warning applies: This information has been disclosed to you from confidential records which are protected by state law. State law prohibits you from making any further disclosure of this information without the specific written consent of the person to whom it pertains, or as otherwise permitted by law. Any unauthorized further disclosure in violation of state law may result in a fine or fdc sentence or both. A general authorization for the release of medical or other information is NOT sufficient authorization for further disc losure. Family History Family Member Name Family Member Gender Family Member Status Date o f Status Description Data Source(s) Unknown Unknown Problem MEDENT ([facility]) Unknown Male Problem MEDENT ([facility]) Unknown Unknown Problem MEDENT ([facility]) 3 girls, 3 boys; 3 who still live with h im Unknown Female Problem MEDENT ([facility]) Encounters Encounter Providers Location Date Indications Data Source(s ) Outpatient Attender: MOE WATERS 04/20/2020 09:28:00 AM [facility] Hospital Admission cancelled. Disregard status an d admitted date. Outpatient Referrer: 318 NRI 03/17/2020 10:58:00 AM EDT [facility] Radiology Imaging Outpatient Referrer: 318 NRI 01/30/2020 05:58:00 AM EDT [facility] Imaging Outpatient Referrer: 318 NRI 01/30/2020 05:58:00 AM EDT [facility]iology Imaging Curtis Edwards MD: [id number] [address], [facility] [place] [address], Ph. Attender: Curtisgarret MCBRIDE - [facility] 11/28/2019 12:00:00 AM EST [facility] ([facility]) Curtis Edwards MD: [address], [place] [address], Ph. Attender: Curtis MCBRIDE - [facility] 11/07/2019 12:00:00 AM EST [facility] ([facility]) Curtis Edwards MD: [address], [address], [place] [address], Ph. Attender: Curtis MCBRIDE - [facility] 11/07/2019 12:00:00 AM EST [facility] ([facility]) Outpatient Referrer: 318 NRI 11/05/2019 09:35:[address] [facility] Radiology Imaging Curtis Edwards MD: [address], [address], [place] [address], Ph. Attender: Curtis MCBRIDE - [facility] 11/04/2019 12:00:00 AM EST [facility] ([facility]) Curtis Edwards MD: [address], [address], [place] [address], Ph. Attender: Curtis MCBRIDE - [facility] 11/04/2019 12:00:00 AM EST [facility] ([facility]) Curtis Edwards MD: [address], [address], [place] [address], Ph. Attender: Curtis MCBRIDE - [facility] 11/04/2019 12:00:00 AM EST [facility] ([facility]) Outpatient Attender: NELSON HONG PA-C 11/03/2019 02:44:00 PM [facility] Outpatient Referrer: 318 NRI 10/29/2019 02:58:00 PM EST [facility] Outpatient Attender: MOE EVELIN 10/27/2019 02:34:00 PM [facility] Medications Medication Brand Name Start Date Product Form Dose Route Admi nistrative Instructions Pharmacy Instructions Status Indications Reaction Description Data Source(s) 4 mg 01/21/2020 12:00:00 AM EDT tablet,disintegrating 8 DISSOLVE ONE TABLET ON TONGUE EVERY 12 HOURS NEEDED FOR NAUSEA AND VOMITING DISSOLVE ONE TABLET ON TONGUE EVERY 12 HOURS NEEDED FOR NAUSEA AND VOMITING SOLD: 01/21/2020 [facility] 90 mcg/actuation 01/15/2020 12:00:00 AM EDT HFA aerosol inha ler 8 INHALE ONE TO TWO PUFFS BY MOUTH EVERY 4 HOURS NEEDED FOR WHEEZING INHALE ONE TO TWO PUFFS BY MOUTH EVERY 4 HOURS NEEDED FOR WHEEZING SOLD: 01/21/2020 [facility] 4 mg 11/05/2019 12:00:00 AM EST tablet 45 TAKE ONE TABLET BY MOUTH THREE TIMES A DAY NEEDED TAKE ONE TABLET BY MOUTH THREE TIMES A DAY NEEDED S OLD: 11/05/2019 [facility] Insurance Providers Payer name Policy type / Coverage type Policy ID Covered constitution party ID Covered constitution party's relationship to pimentel Policy Pimentel Plan Information [facility] [id number] SP [id number] 1000 'S ADMINISTRATION [id number] SP [id number] [employer] [id number] S [id number] [place] O [id number] S [id number] [place] O [id number] S [id number] WPS [facility] TRIWEST [id number] SP [id number] SELF PAY UNAVAILABLE UNAVAILA BLE [facility] O [id number] S [id number] SELF PAY ONLY [id number] SP [id number] [facility] COMM[facility] [id number] SP [id number] ANSI-Medicaid [id number] ANSI-Medicaid [id number] ANSI-Medicaid [id number] ANSI-Medicaid [id number] [place] HLCR/Community [facility] Health Maintenance Organization (HMO) [id number] Self [id number] [facility] Health Maintenance Organization (HMO) [id number] Self [id number] UN COMMUNITY PLAN MCDHMO [id number] SP [id number] [facility] Comm Plan Medicaid F [id number] SELF [id number] [facility] I [id number] Self [id number] [facility]) O [id number] S [id number] [facility] Community Susana/Ess PLS Commercial [id number] Self [id number] [facility] [id number] SP [id number] [facility] F [id number] SELF [id number] [facility] [id number] 18 [id number] [facility] F [id number] SELF [id number] I/[facility] F [id number] SELF [id number] [facility] O [id number] S [id number] Acc/Dol ([place] Labor) (WC) Workers Compensation Self [place] DEPART OF LABOR O [id number] S [id number] [place] DEPT OF LABOR [id number] SP [id number] [place] DEPT OF LABOR [id number] SP [id number] [place] DEPT OF LABOR UNAVAILABLE SP UNAVAILABLE O UNAVAILABLE UNAVAILA BLE [facility] HEALTH -O/P [id number] 18 [id number] DEPT OF LABOR [id number] SP [id number] WORKMENS COMP AND NO FAULT OTHER -O/P GET INFO 18 GET INFO [facility] - [id number] 18 [id number] Problems, Conditions, and Diagnoses Code Display Name Description Problem Type Effective Dates Data Source(s) Z53.29 Procedure and treatment not carried out because of patient's decision for other reasons PROC/TRTMT NOT CRD OUT BEC PT DECISION FOR OTH REASONS Diagn osis 04/13/2020 12:00:00 PM EDT [facility] F10.10 Alcohol abuse, uncomplicated ALCOHOL ABUSE, UNCOMPLICA NANCY Diagnosis 11/03/2019 02:44:00 PM [facility] F10.20 Alcohol dependence, uncomplicated ALCOHOL DEPEND ENCE, UNCOMPLICATED Diagnosis 10/27/2019 02:34:00 PM [facility] F43.8 Other reactions to severe stress OTHER REACTIONS TO SEVERE STRESS Diagnosis 10/27/2019 02:34:00 PM [facility] Results ID Date Data Source [id number] 01/21/2020 11:50:00 AM EDT [facility] Name Value Range Interpretation Code Description Data Ofelia rce(s) Supporting Document(s) SARS CORONAVIRUS 2 RNA [facility] This lab was ordered by [facility] and reported by [facility]. Procedure Vital Signs ID Date Data Source UNK Name Value Range Interpretation Code Description Data Source(s) Body weight 250 [lb_av] 250 [lb_av] [facility] ([facility]) Systolic blood pressure 161 mm[Hg] 161 mm[Hg] A THENA ([facility]) Body mass index (BMI) [Ratio] 29.6 kg/m2 29.6 k g/m2 [facility] ([facility]) Body height 77 [in_i] 77 [in_i] [facility] ([facility]) Diastolic blood pressure 83 mm[Hg] 83 mm[Hg] [facility] ([facility]) Body weight 250 [lb_av] 250 [lb_av] [facility] ([facility]) Systolic blood pressure 161 mm[Hg] 161 mm[Hg] A THENA ([facility]) Body mass index (BMI) [Ratio] 29.6 kg/m2 29.6 k g/m2 [facility] ([facility]) Body height 77 [in_i] 77 [in_i] [facility] ([facility]) Diastolic blood pressure 83 mm[Hg] 83 mm[Hg] [facility] ([facility]) Body weight 250 [lb_av] 250 [lb_av] [facility] ([facility]) Systolic blood pressure 161 mm[Hg] 161 mm[Hg] A THENA ([facility]) Body mass index (BMI) [Ratio] 29.6 kg/m2 29.6 k g/m2 [facility] ([facility]) Body height 77 [in_i] 77 [in_i] [facility] ([facility]) Diastolic blood pressure 83 mm[Hg] 83 mm[Hg] [facility] ([facility])
[2020-11-04] MEDS ORDERED: NS 1,000 ML IV ONE (08:30)
[2020-11-04] MEDS ORDERED: KETOROLAC 30 MG/ML 1ML VIAL IV ONE (08:30)
--- OUTSIDE RECORDS SUMMARY | 2020-11-04 08:44 | CCD ---
Author Author [facility] Organization [facility] Address Unknown Phone Unavailable Care Team Providers Care Dock Manager Name Role Phone MOE WATERS Unavailable Unavailable NRI, 318 Unavailable Unavailable GELY, JENNY NELSON PA-C Unavailable Unavailable GELY, JENNY NELSON PA-C Unavailable Unavailable GELY, JENNY NELSON PA-C Unavailable Unavailable GELY, JENNY NLESON PA-C Unavailable Unavailable GELY, JENNY NELSON PA-C Unavailable Unavailable GELY, JENNY NLESON PA-C Unavailable Unavailable GELY, JENNY NELSON PA-C Unavailable Unavailable GELY, JENNY NELSON PA-C Unavailable Unavailable GELY, JENNY NELSON PA-C Unavailable Unavailable Radha Edwards MD Unavailable Unavailable Radha Edwards MD Unavailable Unavailable Rahda Edwards MD Unavailable Unavailable Radha Edwards MD [...] is protected by Article 27-F of the [facility] Public Health law. If you continue you may have access to information: Regarding HIV / AIDS; Provided by facilities licensed or operated by the [facility] Office of Mental Health; or Provided by the [facility] Office for People With Developmental Disabilities. If such information is present, then the following [facility] mandated warning applies: This information has been [...] law may result in a fine or shelter sentence or both. A general authorization for the release of medical or other information is NOT sufficient authorization for further disc losure. Family History Family Member Name Family Member Gender Family Member Status Date o f Status Description Data Source(s) Unknown Unknown Problem MEDENT ([facility]) Unknown Male Problem MEDENT ([facility]) Unknown Unknown Problem MEDENT ([facility]) 3 girls, 3 boys; 3 who still live with h im Unknown Female Problem MEDENT ([facility]) Encounters Encounter Providers Location Date Indications Data Source(s ) Outpatient Attender: MOE WATERS 04/20/2020 09:28:00 AM [facility] Hospital Admission cancelled. Disregard status an d admitted date. Outpatient Referrer: 318 NRI 03/17/2020 10:58:00 AM EDT [facility] Radiology Imaging Outpatient Referrer: 318 NRI 01/30/2020 05:58:00 AM EDT [facility] Imaging Outpatient Referrer: 318 NRI 01/30/2020 05:58:00 AM EDT [facility]iology Imaging Curtis Edwards MD: [address] [address], [facility] [place] [address], Ph. Attender: Curtisgarret MCBRIDE - [facility] 11/28/2019 12:00:00 AM EST [facility] ([facility]) Curtis Edwards MD: [address] [place] [address], Ph. Attender: Curtis MCBRIDE - [facility] 11/07/2019 12:00:00 AM EST [facility] ([facility]) Curtis Edwards MD: [address], [address], [place] [address], Ph. Attender: Curtis MCBRIDE - [facility] 11/07/2019 12:00:00 AM EST [facility] ([facility]) Outpatient Referrer: 318 NRI 11/05/2019 09:35:00 PM [facility] Radiology Imaging Curtis Edwards MD: [address], [place] [address], Ph. Attender: Curtis MCBRIDE - [facility] 11/04/2019 12:00:00 AM EST [facility] ([facility]) Curtis Edwards MD: [address], [place] [address], Ph. Attender: Curtis MCBRIDE - [facility] 11/04/2019 12:00:00 AM EST [facility] ([facility]) Curtis Edwards MD: [address], [place] [address], Ph. Attender: Curtis MCBRIDE - [facility] 11/04/2019 12:00:00 AM EST [facility] ([facility]) Outpatient Attender: NELSON HONG PA-C 11/03/2019 02:44:00 PM [facility] Outpatient Referrer: 318 NRI 10/29/2019 02:58:00 PM EST [facility] Outpatient Attender: MOE EVELIN 10/27/2019 02:34:00 PM [facility] Medications Medication Brand Name Start Date Product [...] type / Coverage type Policy ID Covered democrat ID Covered democrat's relationship to pimentel Policy Pimentel Plan Information [facility] [id number] SP [id number] 1000 'S ADMINISTRATION [id number] SP [id number] [employer] [id number] S [id number] [place] O [id number] S [id number] [place] O [id number] S [id number] WPS [facility] TRIWEST [id number] SP [id number] SELF PAY UNAVAILABLE UNAVAILA BLE [facility]/136E O [id number] S [id number] SELF PAY ONLY [id number] SP [id number] [facility] COMMUNITY PLAN [facility] [id number] SP [id number] ANSI-Medicaid [id number] ANSI-Medicaid [id number] ANSI-Medicaid [id number] ANSI-Medicaid [id number] [place] [facility]CR/Community [place] Health Maintenance Organization (HMO) [id number] Self [id number] [facility] Health Maintenance Organization (HMO) [id number] Self [id number] UN COMMUNITY PLAN MCDHMO [id number] SP [id number] [facility] Comm Plan Medicaid F [id number] SELF [id number] [facility] I [id number] Self [id number] [facility] O [id number] S [id number] [facility] Community Susana/Ess PLS Commercial [id number] Self [id number] [facility] [id number] SP [id number] [facility] F [id number] SELF [id number] [facility] [id number] 18 [id number] [facility] F [id number] SELF [id number] I/[facility] F [id number] SELF [id number] [facility] O [id number] S [id number] Acc/Dol ([place] Labor) (WC) Workers Compensation Self [place] DEPART OF LABOR O [id number] S [id number] [place] DEPT OF LABOR [id number] SP [id number] [place] DEPT OF LABOR [id number] SP [id number] [place] DEPT OF LABOR UNAVAILABLE SP UNAVAILABLE O UNAVAILABLE UNAVAILA BLE [facility] HEALTH -O/P [id number] 18 [id number] DEPT OF LABOR [id number] SP [id number] WORKMENS COMP AND NO FAULT OTHER -O/P GET INFO 18 GET INFO [facility] - [id number] 18 [id number] Problems, Conditions, and Diagnoses Code Display Name Description Problem Type Effective Dates Data Source(s) Z53.29 Procedure and treatment not carried out because of patient's decision for other reasons PROC/TRTMT NOT CRD OUT BEC PT DECISION FOR OTH REASONS Diagn osis 04/13/2020 12:00:00 PM EDT [facility] F10.10 Alcohol abuse, uncomplicated ALCOHOL ABUSE, UNCOMPLICA NANCY Diagnosis 11/03/2019 02:44:00 PM [facility] F10.20 Alcohol dependence, uncomplicated ALCOHOL DEPEND ENCE, UNCOMPLICATED Diagnosis 10/27/2019 02:34:00 PM [facility] F43.8 Other reactions to severe stress OTHER REACTIONS TO SEVERE STRESS Diagnosis 10/27/2019 02:34:00 PM [facility] Results ID Date Data Source [id number] 01/21/2020 11:50:00 AM EDT [facility] Name Value Range Interpretation Code Description Data Ofelia rce(s) Supporting Document(s) SARS CORONAVIRUS 2 RNA [facility] This lab was ordered by [facility] and reported by [facility]. Procedure Vital Signs ID Date Data Source UNK Name Value Range Interpretation Code Description Data Source(s) Body weight 250 [lb_av] 250 [lb_av] [facility] ([facility]) Systolic blood pressure 161 mm[Hg] 161 mm[Hg] A THENA ([facility]) Body mass index (BMI) [Ratio] 29.6 kg/m2 29.6 k g/m2 [facility] ([facility]) Body height 77 [in_i] 77 [in_i] [facility] ([facility]) Diastolic blood pressure 83 mm[Hg] 83 mm[Hg] [facility] ([facility]) Body weight 250 [lb_av] 250 [lb_av] [facility] ([facility]) Systolic blood pressure 161 mm[Hg] 161 mm[Hg] A THENA ([facility]) Body mass index (BMI) [Ratio] 29.6 kg/m2 29.6 k g/m2 [facility] ([facility]) Body height 77 [in_i] 77 [in_i] [facility] ([facility]) Diastolic blood pressure 83 mm[Hg] 83 mm[Hg] [facility] ([facility]) Body weight 250 [lb_av] 250 [lb_av] [facility] ([facility]) Systolic blood pressure 161 mm[Hg] 161 mm[Hg] A THENA ([facility]) Body mass index (BMI) [Ratio] 29.6 kg/m2 29.6 k g/m2 [facility] ([facility]) Body height 77 [in_i] 77 [in_i] [facility] ([facility]) Diastolic blood pressure 83 mm[Hg] 83 mm[Hg] [facility] ([facility])
[2020-11-04 08:53] LABS: BASO % 0.9 % (0.0-1.0); EOS # 0.1 10^3/uL (0.0-0.5); EOS % 2.2 % (0.0-3.0); HEMATOCRIT 44.9 % (42.0-52.0); HEMOGLOBIN 15.3 g/dl (13.5-17.5); LYMPH # 1.2 10^3/uL (1.5-5.0); LYMPH % 27.3 % (24.0-44.0); MEAN CORPUSCULAR HEMOGLOBIN 30.4 pg (27.0-33.0); MEAN CORPUSCULAR HGB CONC 34.1 g/dl (32.0-36.5); MEAN CORPUSCULAR VOLUME 89.3 fl (80.0-96.0); MONO # 0.3 10^3/uL (0.0-0.8); MONO % 6.9 % (0.0-5.0); NEUTROPHILS # 2.8 10^3/uL (1.5-8.5); NEUTROPHILS % 62.5 % (36.0-66.0); PLATELET COUNT, AUTOMATED 277 10^3/uL (150-450); RED BLOOD COUNT 5.03 10^6/uL (4.30-6.10); WHITE BLOOD COUNT 4.5 10^3/uL (4.0-10.0)
[2020-11-04 09:13] LABS: ALBUMIN 4.1 GM/DL (3.2-5.2); ALT/SGPT 37 U/L (12-78); BILIRUBIN,DIRECT 0.2 MG/DL (0.0-0.2); BILIRUBIN,TOTAL 0.8 MG/DL (0.2-1.0); BLOOD UREA NITROGEN 12 MG/DL (7-18); CALCIUM LEVEL 9.3 MG/DL (8.5-10.1); CARBON DIOXIDE LEVEL 28 MEQ/L (21-32); CHLORIDE LEVEL 105 MEQ/L (98-107); CREATININE FOR GFR 0.97 MG/DL (0.70-1.30); GLOMERULAR FILTRATION RATE > 60.0 (>60); GLUCOSE, FASTING 131 MG/DL (70-100); LIPASE 524 U/L (73-393); POTASSIUM SERUM 3.8 MEQ/L (3.5-5.1); SODIUM LEVEL 142 MEQ/L (136-145); TOTAL PROTEIN 7.3 GM/DL (6.4-8.2)
--- NOTE | 2020-11-04 09:40 | REP ---
INDICATION: ruq pain COMPARISON: None. TECHNIQUE: Real time rose scale ultrasound examination using curved array transducer. FINDINGS: Gallbladder includes 16 mm nonmobile gallstone approaching the gallbladder neck along with minimal wall thickening to 3.1 mm and small gallbladder polyps measuring 3 mm. No biliary ductal dilatation is appreciated and the common bile duct measures 4.1 mm diameter. Liver is normal in appearance and measures 15.7 cm in craniocaudal length. Pancreas is unremarkable. Right kidney is normal and without hydronephrosis measuring 12.0 x 5.8 x 5.5 cm. No ascites in the visualized right upper quadrant. IMPRESSION: Cholelithiasis. No definitive sonographic findings to suggest acute cholecystitis. <Electronically signed by Archie Cat > 11/04/20 0921
[2020-11-04 10:07] VITALS: BP 135/90
[2020-11-04] MEDS ORDERED: ONDA4TAB6 PO (10:20)
[2020-11-04] MEDS ORDERED: HYDR-3713 PO (10:20)
== END 2020-11-04 10:38 | disposition home or self-care (01) ==
LOC: M ED 08:07
DX: K80.50 Calculus of bile duct without cholangitis or cholecystitis without obstruction (principal); K21.9 Gastro-esophageal reflux disease without esophagitis; F07.81 Postconcussional syndrome; F17.200 Nicotine dependence, unspecified, uncomplicated; Z79.899 Other long term (current) drug therapy; Z88.8 Allergy status to other drugs, medicaments and biological substances
CPT/HCPCS: 76705; 80048; 80076; 83690; 85025; 96361; 96374; 99284; J1885

== ENCOUNTER 2020-12-13 08:37 | Emergency (ER) | payer OTHER ==
[~2020-12-13] VITALS: Ht 195.6 cm; Wt 115.2 kg
[~2020-12-13 08:37] MED LIST changes: -AMIT10TA PO; +AMIT10TA7 PO; +HYDR-3713 PO
[2020-12-13] MEDS ORDERED: D31000TA2 PO (08:51)
[2020-12-13] MEDS ORDERED: LIDOCAINE 5% (LIDODERM) PATCH TD ONE (09:20)
[2020-12-13] MEDS ORDERED: ACETAMINOPHEN 500 MG TAB PO ONE (09:35)
--- NOTE | 2020-12-13 09:39 | REP ---
INDICATION: fall, ttp. COMPARISON: None. TECHNIQUE: Axial noncontrast images of the lumbosacral spine from mid T12 through upper sacrum with coronal and sagittal reformations. This CT examination was performed using the following dose reduction techniques: Automated exposure control, adjustment of mA and/or kv according to the patient's size, and use of iterative reconstruction technique. FINDINGS: Alignment and lordosis is maintained and there is no evidence for acute fracture/compression injury or subluxation. Early advanced degenerative findings at L3-4 include osteophytosis, endplate sclerosis, disc space narrowing, posterior disc bulge and facet hypertrophy causing canal stenosis and effacement of the anterior thecal sac. Similar but less pronounced degenerative changes are also identified throughout the remainder of the lumbar spine. IMPRESSION: 1. No evidence for acute fracture/compression injury or subluxation. 2. Moderate to advanced multilevel degenerative spondylosis which are similar to findings on prior MRI dated 08/27/2015. <Electronically signed by Archie Cat > 12/13/20 0935
--- NOTE | 2020-12-13 09:41 | REP ---
INDICATION: fall, ttp COMPARISON: None. TECHNIQUE: AP and lateral views of the sacrum and coccyx. FINDINGS: Sacrum and coccyx appear intact and without evidence for acute fracture or dislocation/subluxation. Bilateral sacroiliac joints are symmetric and normal. There is a chronic bone island in the right iliac bone confirmed by prior CT dated 2019. IMPRESSION: . No acute fracture or dislocation. <Electronically signed by Archie Cat > 12/13/20 0905
[2020-12-13] MEDS ORDERED: LIDO5DIS41 TOP (09:58)
[2020-12-13 10:14] VITALS: BP 150/95
[2020-12-13] MEDS ORDERED: **NOTE PATIENT COMMENT** MISC XX SCH (21:00)
== END 2020-12-13 10:13 | disposition home or self-care (01) ==
LOC: M ED 08:37
DX: S30.0XXA Contusion of lower back and pelvis, initial encounter (principal); M51.37 Other intervertebral disc degeneration, lumbosacral region; M54.17 Radiculopathy, lumbosacral region; W00.9XXA Unspecified fall due to ice and snow, initial encounter; Y92.9 Unspecified place or not applicable; Y93.9 Activity, unspecified; Y99.9 Unspecified external cause status; I10 Essential (primary) hypertension; M19.90 Unspecified osteoarthritis, unspecified site; K21.9 Gastro-esophageal reflux disease without esophagitis; F43.10 Post-traumatic stress disorder, unspecified; F17.200 Nicotine dependence, unspecified, uncomplicated; F12.10 Cannabis abuse, uncomplicated; Z79.899 Other long term (current) drug therapy; Z88.8 Allergy status to other drugs, medicaments and biological substances

== ENCOUNTER 2021-04-05 17:41 | Emergency (ER) | payer OTHER ==
[~2021-04-05] VITALS: Ht 195.6 cm; Wt 115.1 kg
[~2021-04-05 17:41] MED LIST changes: +D31000TA2 PO; +LIDO5DIS41 TOP
--- NOTE | 2021-04-05 18:44 | REPVR ---
PROCEDURE INFORMATION: Exam: CT Head Without Contrast Exam date and time: 04/05/2021 6:06 PM Age: 45 years old Clinical indication: Other: Blurry vision TECHNIQUE: Imaging protocol: Computed tomography of the head without contrast. Radiation optimization: All CT scans at this facility use at least one of these dose optimization techniques: automated exposure control; mA and/or kV adjustment per patient size (includes targeted exams where dose is matched to clinical indication); or iterative reconstruction. COMPARISON: CT Head without contrast 07/26/2018 11:40 PM FINDINGS: Brain: No acute intracranial hemorrhage, cerebral edema, or midline shift. Cerebral ventricles: No hydrocephalus. Paranasal sinuses: There are large mucous retention cysts in the bilateral maxillary sinuses. Mastoid air cells: Trace fluid is present in the right mastoid air cells. Orbital cavity: Unremarkable as visualized. Bones/joints: No acute fracture. Soft tissues: Unremarkable. IMPRESSION: No acute intracranial abnormality. Electronically signed by: Daniel Baptiste On 04/05/2021 18:44:01 PM
[2021-04-05] MEDS ORDERED: KETOROLAC 30 MG/ML 1ML VIAL IV ONE (19:45)
[2021-04-05 20:36] LABS: BLOOD UREA NITROGEN 13 MG/DL (7-18); CALCIUM LEVEL 8.9 MG/DL (8.5-10.1); CARBON DIOXIDE LEVEL 29 MEQ/L (21-32); CHLORIDE LEVEL 107 MEQ/L (98-107); CREATININE FOR GFR 0.74 MG/DL (0.70-1.30); GLOMERULAR FILTRATION RATE > 60.0 (>60); GLUCOSE, FASTING 88 MG/DL (70-100); POTASSIUM SERUM 3.8 MEQ/L (3.5-5.1); SODIUM LEVEL 140 MEQ/L (136-145)
[2021-04-05 20:55] LABS: BASO # 0.1 10^3/uL (0.0-0.2); BASO % 0.8 % (0.0-1.0); EOS # 0.2 10^3/uL (0.0-0.5); EOS % 2.8 % (0.0-3.0); HEMATOCRIT 42.7 % (42.0-52.0); HEMOGLOBIN 14.6 g/dl (13.5-17.5); LYMPH # 2.4 10^3/uL (1.5-5.0); LYMPH % 36.3 % (24.0-44.0); MEAN CORPUSCULAR HEMOGLOBIN 30.7 pg (27.0-33.0); MEAN CORPUSCULAR HGB CONC 34.2 g/dl (32.0-36.5); MEAN CORPUSCULAR VOLUME 89.7 fl (80.0-96.0); MONO # 0.6 10^3/uL (0.0-0.8); MONO % 8.8 % (2.0-8.0); NEUTROPHILS # 3.3 10^3/uL (1.5-8.5); PLATELET COUNT, AUTOMATED 282 10^3/uL (150-450); RED BLOOD COUNT 4.76 10^6/uL (4.30-6.10); WHITE BLOOD COUNT 6.5 10^3/uL (4.0-10.0)
[2021-04-05 21:14] LABS: ERYTHROCYTE SEDIMENTATION RATE 4 mm/hr (0-15)
[2021-04-05 22:11] VITALS: BP 149/90
== END 2021-04-05 22:13 | disposition home or self-care (01) ==
LOC: M ED 17:41
DX: G43.909 Migraine, unspecified, not intractable, without status migrainosus (principal); F43.10 Post-traumatic stress disorder, unspecified; Z79.899 Other long term (current) drug therapy; Z88.8 Allergy status to other drugs, medicaments and biological substances
CPT/HCPCS: 70450; 80048; 85025; 85652; 86140; 96374; 99284; J1885

== ENCOUNTER 2021-09-22 19:20 | Emergency (ER) | payer OTHER ==
[~2021-09-22] VITALS: Ht 195.6 cm; Wt 119.1 kg
[~2021-09-22 19:20] MED LIST changes: +OMEP-173 PO; -OMEP-218 PO
[2021-09-22 20:34] LABS: BASO % 0.6 % (0.0-1.0); EOS # 0.3 10^3/uL (0.0-0.5); EOS % 4.2 % (0.0-3.0); HEMATOCRIT 41.5 % (42.0-52.0); HEMOGLOBIN 14.3 g/dl (13.5-17.5); LYMPH # 2.7 10^3/uL (1.5-5.0); LYMPH % 38.5 % (24.0-44.0); MEAN CORPUSCULAR HEMOGLOBIN 30.8 pg (27.0-33.0); MEAN CORPUSCULAR HGB CONC 34.5 g/dl (32.0-36.5); MEAN CORPUSCULAR VOLUME 89.2 fl (80.0-96.0); MONO # 0.5 10^3/uL (0.0-0.8); MONO % 7.8 % (2.0-8.0); NEUTROPHILS # 3.4 10^3/uL (1.5-8.5); NEUTROPHILS % 48.6 % (36.0-66.0); PLATELET COUNT, AUTOMATED 256 10^3/uL (150-450); RED BLOOD COUNT 4.65 10^6/uL (4.30-6.10); WHITE BLOOD COUNT 6.9 10^3/uL (4.0-10.0)
[2021-09-22 20:53] LABS: ALBUMIN 3.6 GM/DL (3.2-5.2); ALT/SGPT 61 U/L (12-78); BILIRUBIN,DIRECT 0.1 MG/DL (0.0-0.2); BILIRUBIN,TOTAL 0.4 MG/DL (0.2-1.0); BLOOD UREA NITROGEN 11 MG/DL (7-18); CALCIUM LEVEL 8.8 MG/DL (8.5-10.1); CARBON DIOXIDE LEVEL 28 MEQ/L (21-32); CHLORIDE LEVEL 109 MEQ/L (98-107); CREATININE FOR GFR 0.91 MG/DL (0.70-1.30); GLOMERULAR FILTRATION RATE > 60.0 (>60); GLUCOSE, FASTING 114 MG/DL (70-100); LIPASE 185 U/L (73-393); POTASSIUM SERUM 3.7 MEQ/L (3.5-5.1); SODIUM LEVEL 143 MEQ/L (136-145); TOTAL PROTEIN 6.6 GM/DL (6.4-8.2)
[2021-09-22] MEDS ORDERED: MORPHINE 4 MG/ML 1ML VIAL/SYRINGE (J2270) IV ONE (22:40)
[2021-09-22] MEDS ORDERED: ISOVUE-370 76% 100ML VIAL As Ordered ONE (22:41)
[2021-09-22] MEDS ORDERED: ONDANSETRON 4MG/2ML VIAL IV ONE (22:55)
[2021-09-23] MEDS ORDERED: PROT1TAB2 PO (00:35)
[2021-09-23] MEDS ORDERED: SUCR1SS PO (00:35)
[2021-09-23 00:36] VITALS: BP 115/66
== END 2021-09-23 01:05 | disposition home or self-care (01) ==
LOC: M ED 19:20
DX: K27.9 Peptic ulcer, site unspecified, unspecified as acute or chronic, without hemorrhage or perforation (principal); F12.10 Cannabis abuse, uncomplicated; Z79.899 Other long term (current) drug therapy; Z88.8 Allergy status to other drugs, medicaments and biological substances
CPT/HCPCS: 74177; 80053; 81001; 82248; 83690; 85025; 96374; 96375; 99284; J2270; J2405; Q9967